=== PATIENT | male | born 1965 | race Hispanic/Latino ===

== ENCOUNTER 2018-05-08 12:20 | Inpatient (IN) | payer OTHER ==
[~2018-05-08] VITALS: Ht 172.7 cm; Wt 105.9 kg
[2018-05-08] VITALS (15 sets, daily range): BP systolic 104–138; BP diastolic 62–81
[2018-05-08 12:51] LABS: BASOPHILS % (AUTO) 0.4 % (0.0-5.0); EOSINOPHILS % (AUTO) 0.1 % (0.0-8.0); HEMATOCRIT 47.6 % (42-54); LYMPHOCYTES % (AUTO) 7.5 % (21.0-51.0); MEAN CORPUSCULAR HEMOGLOBIN 29.7 pg (27.0-33.0); MEAN CORPUSCULAR HGB CONC 33.2 g/dL (32.0-36.0); MEAN CORPUSCULAR VOLUME 89.5 fL (79-99); MONOCYTES % (AUTO) 12.1 % (3.0-13.0); NEUTROPHILS % (AUTO) 79.9 % (40.0-77.0); PLATELET COUNT (AUTO) 162 K/uL (130-400); RED BLOOD CELL COUNT(AUTO) 5.32 MIL/uL (4.50-6.20); RED CELL DISTRIBUTION WIDTH 14.5 % (11.0-15.5); WHITE BLOOD COUNT (AUTO) 18.5 K/uL (4.8-10.8)
[2018-05-08] MEDS ORDERED: INSULIN HUMULIN R 100 UNIT/ML 3ML ONE ×2 (12:57→13:35)
[2018-05-08 13:03] LABS: INR 1.14 (0.85-1.15); PARTIAL THROMBOPLASTIN TIME 31.1 SEC (26.3-35.5); PROTHROMBIN TIME 11.9 SEC (9.6-11.6)
[2018-05-08] MEDS ORDERED: SODIUM CHLORIDE 0.9% 1000ML 3,000 ML IV ONE (13:03)
[2018-05-08 13:19] LABS: ALANINE AMINOTRANSFERASE 24 U/L (12-78); ALBUMIN 1.9 g/dL (3.5-5.0); ASPARTATE AMINOTRANSFERASE 22 U/L (10-37); CARBON DIOXIDE 17 mmol/L (21-32); CREATINE KINASE MB 0.7 ng/mL (0.5-3.6); CREATINE KINASE, TOTAL 19 U/L (21-232); CREATININE 1.8 mg/dL (0.5-1.5); GLOMERULAR FILTR. RATE CALC 42 mL/min (>60); MYOGLOBIN 105 ng/mL (10-92); POTASSIUM 4.1 mmol/L (3.5-5.1); SODIUM SERUM 120 mmol/L (136-145); TROPONIN I < 0.04 ng/mL (0.00-0.06); UREA NITROGEN, BLOOD 54 mg/dL (7-18)
[2018-05-08 13:20] LABS: CHLORIDE 83 mmol/L (101-111)
[2018-05-08 13:20] LABS: ABG BASE EXCESS -8.8 mmol/L (-2.0-3.0); ABG HCO3 14.6 mmol/L (21.0-28.0); ABG OXYGEN SATURATION 98.1 % (95.0-99.0); ABG PCO2 26 mmHg (35-48)
[2018-05-08 13:27] LABS: GLUCOSE,RANDOM 725 mg/dL (70-105)
[2018-05-08] MEDS ORDERED: CEFTRIAXONE SODIUM 1 GM ONE (13:50)
[2018-05-08 14:11] LABS: APPEARANCE,URINE Clear (CLEAR); BILIRUBIN,URINE Negative (NEGATIVE); COLOR,URINE Yellow (YELLOW); GLUCOSE, URINE (UA) >=1000 mg/dL (NEGATIVE); KETONES,URINE 15 mg/dL (NEGATIVE); LEUKOCYTE ESTERASE ,URINE Trace (NEGATIVE); NITRATE,URINE Negative (NEGATIVE); OCCULT BLOOD,URINE Moderate (NEGATIVE); PROTEIN,URINE Negative (NEGATIVE); UROBILINOGEN,URINE 0.2 mg/dL (0.2-1.0)
[2018-05-08 14:28] LABS: BACTERIA,URINE Moderate /HPF (None Seen); YEAST,URINE BUDDING Few /HPF (None Seen)
[2018-05-08 14:29] LABS: SQUAMOUS EPITHELIAL CELL,UR 0-2 /HPF (0-2); TRANSITIONAL EPI CELLS,URINE Few /HPF (None Seen)
[2018-05-08] MEDS ORDERED: SODIUM CHLORIDE 0.9% 1000ML 1,000 ML IV SCH ×2 (16:15→18:00)
[2018-05-08] MEDS ORDERED: ACETAMINOPHEN 650 MG SUPPOSITORY RC PRN (18:00)
[2018-05-08] MEDS ORDERED: INSULIN REGULAR, HUMAN 3ML 100 UNIT in SODIUM CHLORIDE 0.9% 99 ML IV PRN ×2 (18:00)
[2018-05-08] MEDS ORDERED: ONDANSETRON HCL MDV 20ML 2 MG/ML VIAL IVP PRN (18:00)
[2018-05-08] MEDS ORDERED: SODIUM CHLORIDE 0.9% 1000ML 1,000 ML IV ONE (18:31)
[2018-05-08] MEDS: ACETAMINOPHEN 325 MG TAB PO PRN (18:42)
[2018-05-08 20:24] LABS: CREATININE 1.5 mg/dL (0.5-1.5)
[2018-05-08] MEDS ORDERED: LIDOCAINE HCL-MPF 1% 2ML VIAL IVP PRN (21:15)
[2018-05-08] MEDS: SODIUM CHLORIDE 0.9% 1000ML 1,000 ML IV SCH (21:15)
[2018-05-08] MEDS ORDERED: POTASSIUM CHLORIDE 20MEQ/100ML 100 ML IV PRN (21:15)
[2018-05-08] MEDS ORDERED: LEVOFLOXACIN 500 MG/D5W 100 ML 100 ML IV SCH (21:15)
[2018-05-08] MEDS: LEVOFLOXACIN 500 MG/D5W 100 ML 100 ML IV SCH (23:39)
[2018-05-09] VITALS (22 sets, daily range): BP systolic 101–143; BP diastolic 56–78
[2018-05-09] MEDS: SODIUM CHLORIDE 0.9% 1000ML 1,000 ML IV SCH ×4 (03:11→23:55)
[2018-05-09 03:48] LABS: BASOPHILS % (AUTO) 0.6 % (0.0-5.0); EOSINOPHILS % (AUTO) 0.2 % (0.0-8.0); HEMATOCRIT 44.2 % (42-54); LYMPHOCYTES % (AUTO) 8.2 % (21.0-51.0); MEAN CORPUSCULAR HEMOGLOBIN 29.9 pg (27.0-33.0); MEAN CORPUSCULAR HGB CONC 34.5 g/dL (32.0-36.0); MEAN CORPUSCULAR VOLUME 86.6 fL (79-99); PLATELET COUNT (AUTO) 141 K/uL (130-400); RED CELL DISTRIBUTION WIDTH 14.2 % (11.0-15.5); WHITE BLOOD COUNT (AUTO) 16.6 K/uL (4.8-10.8)
[2018-05-09 03:58] LABS: CREATININE 1.2 mg/dL (0.5-1.5); POTASSIUM 3.1 mmol/L (3.5-5.1)
[2018-05-09 04:02] LABS: ALBUMIN 1.5 g/dL (3.5-5.0); BILIRUBIN,TOTAL 0.6 mg/dL (0.2-1.0); MAGNESIUM 2.1 mg/dL (1.80-2.40); TOTAL PROTEIN, SERUM 6.1 g/dL (6.0-8.3)
[2018-05-09] MEDS: POTASSIUM CHLORIDE 20 MEQ ERTAB PO PRN (06:10)
[2018-05-09] MEDS: PANTOPRAZOLE SODIUM 40 MG TABLET.DR PO SCH ×2 (08:40→08:51)
[2018-05-09] MEDS: ENOXAPARIN SODIUM 40 MG/0.4 ML SYRINGE SQ SCH (08:42)
[2018-05-09] MEDS: CEFTRIAXONE SODIUM 1 GM IVP SCH (14:29)
[2018-05-09] MEDS: INSULIN NPH 100 UNIT/ML 3ML SQ SCH ×2 (15:16→20:30)
[2018-05-09] MEDS: INSULIN HUMULIN R 100 UNIT/ML 3ML SQ SCH ×2 (17:23→20:30)
[2018-05-09] MEDS: LEVOFLOXACIN 500 MG/D5W 100 ML 100 ML IV SCH (20:27)
[2018-05-10 00:16] VITALS: BP 116/65
[2018-05-10 03:24] VITALS: BP 112/71
[2018-05-10 04:03] LABS: BASOPHILS % (AUTO) 0.2 % (0.0-5.0); EOSINOPHILS % (AUTO) 0.3 % (0.0-8.0); HEMATOCRIT 41.3 % (42-54); MEAN CORPUSCULAR HEMOGLOBIN 28.8 pg (27.0-33.0); MEAN CORPUSCULAR HGB CONC 33.5 g/dL (32.0-36.0); MONOCYTES % (AUTO) 12.9 % (3.0-13.0); NEUTROPHILS % (AUTO) 75.6 % (40.0-77.0); PLATELET COUNT (AUTO) 130 K/uL (130-400); RED CELL DISTRIBUTION WIDTH 14.1 % (11.0-15.5); WHITE BLOOD COUNT (AUTO) 12.7 K/uL (4.8-10.8)
[2018-05-10 04:49] LABS: CARBON DIOXIDE 25 mmol/L (21-32); CHLORIDE 98 mmol/L (101-111); CHOLESTEROL 76 mg/dL (<200); GLOMERULAR FILTR. RATE CALC 83 mL/min (>60); GLUCOSE,RANDOM 222 mg/dL (70-105); LDL DIRECT 39 mg/dL (0-99); SODIUM SERUM 131 mmol/L (136-145); THYROID STIMULATING HORMONE 1.24 uIU/mL (0.36-3.74); TRIGLYCERIDES 160 mg/dL (30-200); UREA NITROGEN, BLOOD 26 mg/dL (7-18)
[2018-05-10 04:50] LABS: HDL CHOLESTEROL < 10 mg/dL (29-71)
[2018-05-10 04:59] LABS: POTASSIUM 2.9 mmol/L (3.5-5.1)
[2018-05-10] MEDS: POTASSIUM CHLORIDE 10% ELIXIR 20 MEQ/15 ML UDCUP PO PRN (05:03)
[2018-05-10] MEDS: INSULIN HUMULIN R 100 UNIT/ML 3ML SQ SCH ×4 (05:35→21:14)
[2018-05-10] MEDS: ACETAMINOPHEN 325 MG TAB PO PRN ×2 (07:29→09:47)
[2018-05-10 07:42] VITALS: BP 107/72
[2018-05-10] MEDS ORDERED: POTASSIUM CHLORIDE 40 MEQ in SODIUM CHLORIDE 0.9% 1000ML 1,000 ML IV SCH (08:29)
[2018-05-10] MEDS ORDERED: TRAMADOL HCL 50 MG TABLET PO PRN (08:45)
[2018-05-10] MEDS ORDERED: MAGNESIUM SULFATE 1 GM in SODIUM CHLORIDE 0.9% 50 ML IV SCH (08:45)
[2018-05-10] MEDS: PANTOPRAZOLE SODIUM 40 MG TABLET.DR PO SCH (09:36)
[2018-05-10] MEDS: FLUCONAZOLE 100 MG TAB PO SCH (09:36)
[2018-05-10] MEDS: ENOXAPARIN SODIUM 40 MG/0.4 ML SYRINGE SQ SCH (09:44)
[2018-05-10] MEDS: INSULIN NPH 100 UNIT/ML 3ML SQ SCH ×2 (09:47→21:22)
[2018-05-10 11:36] VITALS: BP 106/68
[2018-05-10] MEDS: CEFTRIAXONE SODIUM 1 GM IVP SCH (12:34)
[2018-05-10 16:28] VITALS: BP 122/54
[2018-05-10] MEDS ORDERED: IBUPROFEN 400 MG TABLET PO PRN (19:30)
[2018-05-10 20:04] VITALS: BP 139/94
[2018-05-10] MEDS: LEVOFLOXACIN 500 MG/D5W 100 ML 100 ML IV SCH (21:22)
[2018-05-11] VITALS (7 sets, daily range): BP systolic 110–124; BP diastolic 68–75
[2018-05-11 04:05] LABS: BASOPHILS % (AUTO) 0.3 % (0.0-5.0); EOSINOPHILS % (AUTO) 0.2 % (0.0-8.0); HEMATOCRIT 41.7 % (42-54); LYMPHOCYTES % (AUTO) 8.7 % (21.0-51.0); MEAN CORPUSCULAR HEMOGLOBIN 29.8 pg (27.0-33.0); MEAN CORPUSCULAR HGB CONC 34.4 g/dL (32.0-36.0); MEAN CORPUSCULAR VOLUME 86.7 fL (79-99); MONOCYTES % (AUTO) 8.3 % (3.0-13.0); NEUTROPHILS % (AUTO) 82.5 % (40.0-77.0); PLATELET COUNT (AUTO) 205 K/uL (130-400); RED BLOOD CELL COUNT(AUTO) 4.81 MIL/uL (4.50-6.20); RED CELL DISTRIBUTION WIDTH 14.9 % (11.0-15.5); WHITE BLOOD COUNT (AUTO) 12.9 K/uL (4.8-10.8)
[2018-05-11 04:11] LABS: MAGNESIUM 1.9 mg/dL (1.80-2.40); POTASSIUM 3.1 mmol/L (3.5-5.1)
[2018-05-11] MEDS: INSULIN HUMULIN R 100 UNIT/ML 3ML SQ SCH ×4 (06:24→21:00)
[2018-05-11] MEDS ORDERED: MAGNESIUM SULFATE 1 GM in SODIUM CHLORIDE 0.9% 50 ML IV SCH ×2 (09:45→11:00)
[2018-05-11] MEDS: PANTOPRAZOLE SODIUM 40 MG TABLET.DR PO SCH (10:45)
[2018-05-11] MEDS: FLUCONAZOLE 100 MG TAB PO SCH (10:45)
[2018-05-11] MEDS: ENOXAPARIN SODIUM 40 MG/0.4 ML SYRINGE SQ SCH (10:45)
[2018-05-11] MEDS: INSULIN NPH 100 UNIT/ML 3ML SQ SCH ×2 (11:54→22:00)
[2018-05-11] MEDS ORDERED: MAGNESIUM OXIDE 400 MG TABLET PO SCH (12:00)
[2018-05-11] MEDS: CEFTRIAXONE SODIUM 1 GM IVP SCH (12:33)
[2018-05-11] MEDS ORDERED: LEVOFLOXACIN 750 MG/D5W 150 ML 150 ML IV SCH (21:00)
[2018-05-12 03:57] LABS: BASOPHILS % (AUTO) 0.2 % (0.0-5.0); EOSINOPHILS % (AUTO) 0.4 % (0.0-8.0); LYMPHOCYTES % (AUTO) 12.6 % (21.0-51.0); MEAN CORPUSCULAR HEMOGLOBIN 29.2 pg (27.0-33.0); MEAN CORPUSCULAR HGB CONC 34.3 g/dL (32.0-36.0); MEAN CORPUSCULAR VOLUME 85.3 fL (79-99); MONOCYTES % (AUTO) 11.1 % (3.0-13.0); NEUTROPHILS % (AUTO) 75.7 % (40.0-77.0); PLATELET COUNT (AUTO) 233 K/uL (130-400); RED BLOOD CELL COUNT(AUTO) 4.92 MIL/uL (4.50-6.20); RED CELL DISTRIBUTION WIDTH 14.3 % (11.0-15.5); WHITE BLOOD COUNT (AUTO) 15.3 K/uL (4.8-10.8)
[2018-05-12 04:00] VITALS: BP 112/75
[2018-05-12 04:10] LABS: MAGNESIUM 1.6 mg/dL (1.80-2.40)
[2018-05-12 04:21] LABS: POTASSIUM 2.9 mmol/L (3.5-5.1)
[2018-05-12] MEDS ORDERED: SODIUM CHLORIDE 0.9% 250 ML IV ONE (04:31)
[2018-05-12] MEDS: POTASSIUM CHLORIDE 10% ELIXIR 20 MEQ/15 ML UDCUP PO PRN (04:39)
[2018-05-12] MEDS: INSULIN HUMULIN R 100 UNIT/ML 3ML SQ SCH ×4 (06:15→21:00)
[2018-05-12] MEDS: POTASSIUM CHLORIDE 20 MEQ ERTAB PO PRN (06:52)
[2018-05-12 07:00] VITALS: BP 114/64
[2018-05-12] MEDS ORDERED: MAGNESIUM SULFATE 1 GM in SODIUM CHLORIDE 0.9% 50 ML IV SCH (09:45)
[2018-05-12 11:00] VITALS: BP 139/83
[2018-05-12] MEDS: PANTOPRAZOLE SODIUM 40 MG TABLET.DR PO SCH (11:04)
[2018-05-12] MEDS: POTASSIUM CHLORIDE 20 MEQ ERTAB PO SCH ×3 (11:04→17:10)
[2018-05-12] MEDS: CEFTRIAXONE SODIUM 1 GM IVP SCH (11:04)
[2018-05-12] MEDS: ENOXAPARIN SODIUM 40 MG/0.4 ML SYRINGE SQ SCH (11:05)
[2018-05-12] MEDS: FLUCONAZOLE 100 MG TAB PO SCH (11:05)
[2018-05-12] MEDS ORDERED: PHARMACY COMMUNICATION MISC SCH (15:45)
[2018-05-12 16:00] VITALS: BP 134/64
[2018-05-12 19:52] VITALS: BP 136/80
[2018-05-12] MEDS: INSULIN NPH 100 UNIT/ML 3ML SQ SCH (21:37)
[2018-05-12] MEDS: LEVOFLOXACIN 750 MG/D5W 150 ML 150 ML IV SCH (21:44)
[2018-05-12 23:34] VITALS: BP 124/70
[2018-05-13 03:58] LABS: BASOPHILS % (AUTO) 0.2 % (0.0-5.0); EOSINOPHILS % (AUTO) 0.7 % (0.0-8.0); HEMATOCRIT 39.1 % (42-54); LYMPHOCYTES % (AUTO) 14.3 % (21.0-51.0); MEAN CORPUSCULAR HEMOGLOBIN 29.4 pg (27.0-33.0); MEAN CORPUSCULAR VOLUME 86.3 fL (79-99); MONOCYTES % (AUTO) 9.3 % (3.0-13.0); NEUTROPHILS % (AUTO) 75.5 % (40.0-77.0); PLATELET COUNT (AUTO) 245 K/uL (130-400); RED BLOOD CELL COUNT(AUTO) 4.53 MIL/uL (4.50-6.20); RED CELL DISTRIBUTION WIDTH 14.6 % (11.0-15.5); WHITE BLOOD COUNT (AUTO) 13.9 K/uL (4.8-10.8)
[2018-05-13 04:00] VITALS: BP 117/62
[2018-05-13 04:07] LABS: CREATININE 0.8 mg/dL (0.5-1.5); MAGNESIUM 1.6 mg/dL (1.80-2.40); POTASSIUM 3.2 mmol/L (3.5-5.1)
[2018-05-13] MEDS ORDERED: POTASSIUM CHLORIDE 10% ELIXIR 20 MEQ/15 ML UDCUP PO PRN (06:00)
[2018-05-13] MEDS ORDERED: POTASSIUM CHLORIDE 20MEQ/100ML 100 ML IV PRN (06:00)
[2018-05-13] MEDS ORDERED: LIDOCAINE HCL-MPF 1% 2ML VIAL IVP PRN (06:00)
[2018-05-13] MEDS: INSULIN HUMULIN R 100 UNIT/ML 3ML SQ SCH ×4 (06:31→22:47)
[2018-05-13] MEDS: POTASSIUM CHLORIDE 20 MEQ ERTAB PO PRN ×2 (06:34→11:59)
[2018-05-13] MEDS ORDERED: POTASSIUM CHLORIDE 10 MEQ/TAB.SA PO ONE (06:37)
[2018-05-13 08:04] VITALS: BP 109/58
[2018-05-13] MEDS: INSULIN NPH 100 UNIT/ML 3ML SQ SCH ×2 (08:55→22:46)
[2018-05-13] MEDS: CEFTRIAXONE SODIUM 1 GM IVP SCH (08:56)
[2018-05-13] MEDS: PANTOPRAZOLE SODIUM 40 MG TABLET.DR PO SCH (09:01)
[2018-05-13] MEDS: FLUCONAZOLE 100 MG TAB PO SCH (09:01)
[2018-05-13] MEDS: ENOXAPARIN SODIUM 40 MG/0.4 ML SYRINGE SQ SCH (09:02)
[2018-05-13 12:13] VITALS: BP 122/47
[2018-05-13] MEDS ORDERED: POTASSIUM CHLORIDE 10% ELIXIR 20 MEQ/15 ML UDCUP PO SCH (14:00)
[2018-05-13 15:46] VITALS: BP 102/52
[2018-05-13 20:00] VITALS: BP 82/49
[2018-05-13] MEDS ORDERED: POTASSIUM CHLORIDE 20 MEQ ERTAB PO SCH (20:00)
[2018-05-13] MEDS: LEVOFLOXACIN 750 MG/D5W 150 ML 150 ML IV SCH (22:37)
[2018-05-13 23:50] VITALS: BP 92/51
[2018-05-14 03:53] VITALS: BP 99/58
[2018-05-14] MEDS: INSULIN HUMULIN R 100 UNIT/ML 3ML SQ SCH (06:06)
[2018-05-14 07:54] VITALS: BP 101/38
[2018-05-14] MEDS: ENOXAPARIN SODIUM 40 MG/0.4 ML SYRINGE SQ SCH (09:00)
[2018-05-14] MEDS: PANTOPRAZOLE SODIUM 40 MG TABLET.DR PO SCH (09:00)
[2018-05-14] MEDS: FLUCONAZOLE 100 MG TAB PO SCH (09:00)
[2018-05-14] MEDS: INSULIN NPH 100 UNIT/ML 3ML SQ SCH (09:00)
[2018-05-14] MEDS: CEFTRIAXONE SODIUM 1 GM IVP SCH (09:00)
[2018-05-14] MEDS ORDERED: AEC81 PO (09:40)
[2018-05-14] MEDS ORDERED: LEVO750T46 PO (09:40)
[2018-05-14 11:22] VITALS: BP 104/61
== END 2018-05-14 13:20 | disposition home or self-care (01) | DRG 637 ==
LOC: EDH 12:20 → EDHIP 12:21 → 2CH 17:24 → 2AH 05-09 21:02
PROVIDERS: ADMIT Hospitalist; ATTEND Hospitalist
DX: E11.00 Type 2 diabetes mellitus with hyperosmolarity without nonketotic hyperglycemic-hyperosmolar coma (NKHHC) (principal); G93.40 Encephalopathy, unspecified; N39.0 Urinary tract infection, site not specified; E11.65 Type 2 diabetes mellitus with hyperglycemia; B96.1 Klebsiella pneumoniae [K. pneumoniae] as the cause of diseases classified elsewhere; E66.01 Morbid (severe) obesity due to excess calories; E87.6 Hypokalemia; F17.220 Nicotine dependence, chewing tobacco, uncomplicated; W18.30XA Fall on same level, unspecified, initial encounter; R07.9 Chest pain, unspecified; Y93.89 Activity, other specified; Y92.89 Other specified places as the place of occurrence of the external cause; Y99.8 Other external cause status; Z68.35 Body mass index [BMI] 35.0-35.9, adult; Z79.84 Long term (current) use of oral hypoglycemic drugs; Z28.21 Immunization not carried out because of patient refusal
CPT/HCPCS: 36415; 36600; 70450; 71045; 71100; 80048; 80053; 80061; 81001; 82009; 82140; 82550; 82553; 82803; 82947; 82948; 83036; 83605; 83735; 83874; 84443; 84484; 85025; 85610; 85730; 86141; 87040; 87088; 87186; 93005; 97039; 99291; A4218; G0480; J0696; J1650; J1815; J1956; J3475; J3480; J3490; J7030

== ENCOUNTER 2019-03-18 08:24 | Emergency (ER) | payer SELFPAY ==
[~2019-03-18 08:24] MED LIST: AEC81 PO; LEVO750T46 PO
[2019-03-18 10:00] LABS: APPEARANCE,URINE TURBID (CLEAR); BILIRUBIN,URINE NEGATIVE (NEGATIVE); COLOR,URINE YELLOW (YELLOW); GLUCOSE, URINE (UA) >=1000 mg/dL (NEGATIVE); KETONES,URINE NEGATIVE (NEGATIVE); LEUKOCYTE ESTERASE ,URINE MODERATE (NEGATIVE); NITRATE,URINE NEGATIVE (NEGATIVE); OCCULT BLOOD,URINE SMALL (NEGATIVE); PH,URINE 7.5 (5.0-8.0); PROTEIN,URINE 30 mg/dL (NEGATIVE); UROBILINOGEN,URINE 0.2 mg/dL (0.2-1.0)
[2019-03-18 10:12] LABS: BACTERIA,URINE Moderate /HPF (None Seen); WBC,URINE 26-50 /HPF (0-1)
[2019-03-18 10:13] LABS: AMORPHOUS SEDIMENT,UR Few /LPF (None Seen); SQUAMOUS EPITHELIAL CELL,UR Rare /HPF (0-2); TRIPLE PHOSPHATE CRYSTAL,UR Few /LPF (None Seen)
== END 2019-03-18 10:33 | disposition left against medical advice (07) ==
LOC: EDH 08:24
DX: N39.0 Urinary tract infection, site not specified (principal); R33.9 Retention of urine, unspecified
CPT/HCPCS: 81001

== ENCOUNTER 2019-05-29 13:58 | Inpatient (IN) | payer OTHER ==
[~2019-05-29] VITALS: Ht 165.1 cm; Wt 125.4 kg
[2019-05-29 14:44] LABS: BASOPHILS % (AUTO) 0.5 % (0.0-5.0); EOSINOPHILS % (AUTO) 0.2 % (0.0-8.0); HEMATOCRIT 47.5 % (42-54); LYMPHOCYTES % (AUTO) 8.7 % (21.0-51.0); MEAN CORPUSCULAR HEMOGLOBIN 29.9 pg (27.0-33.0); MEAN CORPUSCULAR HGB CONC 34.6 g/dL (32.0-36.0); MEAN CORPUSCULAR VOLUME 86.6 fL (79-99); MONOCYTES % (AUTO) 3.3 % (3.0-13.0); NEUTROPHILS % (AUTO) 87.3 % (40.0-77.0); NUCLEATED RED BLOOD CELLS 0.1 % (0.0-0.19); PLATELET COUNT (AUTO) 91 K/uL (130-400); RED BLOOD CELL COUNT(AUTO) 5.48 MIL/uL (4.50-6.20); RED CELL DISTRIBUTION WIDTH 13.9 % (11.0-15.5); WHITE BLOOD COUNT (AUTO) 7.4 K/uL (4.8-10.8)
[2019-05-29] MEDS ORDERED: SODIUM CHLORIDE 0.9% 1000ML 1,000 ML IV ONE ×2 (14:45→18:02)
[2019-05-29] MEDS ORDERED: ONDANSETRON HCL 4 MG/2 ML VIAL ONE (14:46)
[2019-05-29 14:54] LABS: INR 1.04 (0.85-1.15); PARTIAL THROMBOPLASTIN TIME 28.9 SEC (26.3-35.5); PROTHROMBIN TIME 10.9 SEC (9.6-11.6)
[2019-05-29] MEDS ORDERED: SODIUM CHLORIDE 0.9% 1000ML 2,000 ML IV ONE (14:57)
[2019-05-29] MEDS ORDERED: ACETAMINOPHEN EXTRA STRENGTH 500 MG TABLET ONE (14:58)
[2019-05-29 15:05] LABS: ALANINE AMINOTRANSFERASE 21 U/L (12-78); ALBUMIN 2.3 g/dL (3.5-5.0); ASPARTATE AMINOTRANSFERASE 33 U/L (10-37); CARBON DIOXIDE 22 mmol/L (21-32); CREATINE KINASE, TOTAL 60 U/L (21-232); CREATININE 2.1 mg/dL (0.5-1.5); GLOMERULAR FILTR. RATE CALC 35 mL/min (>60); GLUCOSE,RANDOM 327 mg/dL (70-105); MYOGLOBIN 87 ng/mL (10-92); POTASSIUM 3.6 mmol/L (3.5-5.1); SODIUM SERUM 124 mmol/L (136-145); TOTAL PROTEIN, SERUM 7.4 g/dL (6.0-8.3); TROPONIN I < 0.04 ng/mL (0.00-0.06); UREA NITROGEN, BLOOD 36 mg/dL (7-18)
[2019-05-29 15:07] LABS: CHLORIDE 86 mmol/L (101-111)
[2019-05-29] MEDS ORDERED: SODIUM CHLORIDE 0.9% 50 ML IV ONE (15:17)
[2019-05-29] MEDS ORDERED: CEFTRIAXONE SODIUM 2 GM VIAL ONE (15:17)
[2019-05-29] MEDS ORDERED: ALBUTEROL SULFATE 0.083% 2.5 MG/3 ML INH IH ONE (15:17)
[2019-05-29 15:32] LABS: ABG BASE EXCESS -5.3 mmol/L (-2.0-3.0); ABG HCO3 16.9 mmol/L (21.0-28.0); ABG OXYGEN SATURATION 98.7 % (95.0-99.0); ABG PCO2 25 mmHg (35-48)
[2019-05-29 18:29] LABS: APPEARANCE,URINE SL CLOUDY (CLEAR); BILIRUBIN,URINE NEGATIVE (NEGATIVE); COLOR,URINE YELLOW (YELLOW); GLUCOSE, URINE (UA) >=1000 mg/dL (NEGATIVE); KETONES,URINE 15 mg/dL (NEGATIVE); LEUKOCYTE ESTERASE ,URINE SMALL (NEGATIVE); NITRATE,URINE NEGATIVE (NEGATIVE); OCCULT BLOOD,URINE MODERATE (NEGATIVE); PROTEIN,URINE TRACE mg/dL (NEGATIVE)
[2019-05-29 18:44] LABS: BACTERIA,URINE Few /HPF (None Seen); SQUAMOUS EPITHELIAL CELL,UR Few /HPF (0-2)
[2019-05-29 18:45] LABS: COARSE GRANULAR CASTS,URINE 0-2 /LPF (None Seen)
[2019-05-29] MEDS: SODIUM CHLORIDE 0.9% 1000ML 1,000 ML IV SCH (23:19)
[2019-05-29] MEDS ORDERED: MORPHINE SULFATE 2 MG/ML 1ML SYG IV PRN (23:30)
[2019-05-29] MEDS ORDERED: ONDANSETRON HCL 4 MG/2 ML VIAL IVP PRN (23:30)
[2019-05-30] MEDS ORDERED: MORPHINE SULFATE 2 MG/ML 1ML SYG ONE (00:47)
[2019-05-30] MEDS ORDERED: SODIUM CHLORIDE 0.9% 1000ML 1,000 ML IV ONE (00:47)
[2019-05-30] MEDS ORDERED: ONDANSETRON HCL 4 MG/2 ML VIAL ONE (00:50)
[2019-05-30 02:30] VITALS: BP 111/81
[2019-05-30 04:39] LABS: BASOPHILS % (AUTO) 0.4 % (0.0-5.0); EOSINOPHILS % (AUTO) 0.2 % (0.0-8.0); HEMATOCRIT 40.6 % (42-54); LYMPHOCYTES % (AUTO) 5.5 % (21.0-51.0); MEAN CORPUSCULAR HEMOGLOBIN 30.3 pg (27.0-33.0); MEAN CORPUSCULAR HGB CONC 34.6 g/dL (32.0-36.0); MEAN CORPUSCULAR VOLUME 87.4 fL (79-99); MONOCYTES % (AUTO) 15.9 % (3.0-13.0); PLATELET COUNT (AUTO) 67 K/uL (130-400); RED BLOOD CELL COUNT(AUTO) 4.65 MIL/uL (4.50-6.20); RED CELL DISTRIBUTION WIDTH 14.2 % (11.0-15.5); WHITE BLOOD COUNT (AUTO) 14.8 K/uL (4.8-10.8)
[2019-05-30 04:57] LABS: ALBUMIN 1.7 g/dL (3.5-5.0); BILIRUBIN,TOTAL 0.6 mg/dL (0.2-1.0); CREATININE 1.6 mg/dL (0.5-1.5); POTASSIUM 3.4 mmol/L (3.5-5.1); TOTAL PROTEIN, SERUM 5.8 g/dL (6.0-8.3)
[2019-05-30] MEDS ORDERED: INSULIN HUMULIN R 100 UNIT/ML 3ML SQ SCH (07:30)
[2019-05-30 08:12] VITALS: BP 114/56
[2019-05-30] MEDS: SODIUM CHLORIDE 0.9% 1000ML 1,000 ML IV SCH ×2 (09:19→19:19)
[2019-05-30] MEDS: FAMOTIDINE/PF 20 MG/2 ML VIAL IV SCH (10:56)
[2019-05-30] MEDS: CEFTRIAXONE SODIUM 1 GM IVP SCH (10:56)
[2019-05-30] MEDS: ENOXAPARIN SODIUM 30 MG/0.3 ML SQ SCH (10:57)
[2019-05-30 11:41] VITALS: BP 90/59
[2019-05-30] MEDS ORDERED: POTASSIUM CHLORIDE 10% ELIXIR 20 MEQ/15 ML UDCUP PO PRN (11:45)
[2019-05-30] MEDS: IPRATROPIUM/ALBUTEROL SULFATE 3 ML SOLUTION IH SCH ×3 (13:16→22:00)
--- NOTE | 2019-05-30 14:00 | NUR ---
INITIAL MET W PT ALONE, AAOX3, UNCOMFORTABLE AND SENTECNES JEREMIE AND JONATHAN. STATES HE HAS BEEN [place]IVING [place] [address] FOR 30 YEARS, ON AND OFF, SELF EMPLOYED, STAYS W DIFFERENT PEOPLE, DOES NOT LIKE SHELTERS, NO LOAVES AND FISHES FOR HIM; STATES WILL FIND SOMEONE TO PICK HIM UP ON DISCHARGE- NOT INTERESTED IN THE COMMUNITY RESOURCE PKT SAYS HE GOES TO [facility] WHEN HE CAN; WILL RE VISITS CLOSER TO DISCHARGE AND BRING MED COUPONS Addendum: 05/31/19 at 0809 by MAYNOR EID RN CM Amended: Links added.
--- NOTE | 2019-05-30 16:04 | NUR ---
RD NOTIFICATION DX: RIGHT SIDED URETEROLITHIASIS WITH HYDRONEPHROSIS. HX: DM. BMI IS 46; CLASSIFIED CLASS III MORBID OBESE. DIET: FULL LIQUIDS. PT HAS GOOD APPETITE AND PO INTAKE OF 75%. SKIN INTACT, NO EDEMA. PT CLAIMS TO HAVE EMESIS AT LEAST 3O MINUTES AFTER EACH MEAL. PT HAS NOT BEEN EATING WELL PRIOR TO ADMISSION AND HAVING EMESIS OFTEN. LBM: HAS NOT HAD ONE IN A COUPLE OF DAYS NOW PER PT. RD RECOMMENDS TO CONTINUE CURRENT DIET, ADD 75GM CCD TO DIET ORDER. ADVANCE DIET TOLERATED WHEN MEDICALLY FEASIBLE. OFFER GLUCERNA BID. RD WILL CONTINUE TO MONITOR AND FOLLOW UP NEEDED. Addendum: 05/30/19 at [address] Amended: Links added.
[2019-05-30 16:49] VITALS: BP 117/68
--- NOTE | 2019-05-30 18:00 | NUR ---
NOTE PATIENT REMAINED WITH CONDITION UNCHANGED ALL DAY. DOES BECOME MORE SOB AT TIMES WITH EXERTION. BBS CLEAR DOES REPORT SOME WHEEZING BUT HAVE NOT NOTICED THAT. HE WAS TAKEN FOR VQ SCAN AND DAMAGE APPRAISER CALLED TO GIVE RESULTS, HE WAS NEGATIVE FOR P.E. INSULIN SLIDING SCALE WAS INCREASED TO SSI REGULAR INSULIN FOR 2 CONSECUTIVE BLOOD SUGARS IN THE 300'S. DR COLLIER ALSO CAME IN TO CONSULT AND HE ORDERED FOR RIGHT NEPHROSTOMY TUBE PLACEMENT AND FOLLOW UP IN 2 WEEKS. HE TOLD HIM THIS COULD BE THE ROOT OF ALL HIS SYMPTOMS AND UTI'S. PATIENT UNDERSTOOD WHAT WAS EXPLAINED.
[2019-05-30] MEDS: INSULIN HUMULIN R 100 UNIT/ML 3ML SQ SCH ×2 (18:10→21:38)
[2019-05-30 19:11] VITALS: BP 137/68
[2019-05-30 23:39] VITALS: BP 106/59
[2019-05-31] VITALS (7 sets, daily range): BP systolic 105–143; BP diastolic 54–97
[2019-05-31] MEDS: IPRATROPIUM/ALBUTEROL SULFATE 3 ML SOLUTION IH SCH ×2 (02:00→06:00)
[2019-05-31] MEDS: SODIUM CHLORIDE 0.9% 1000ML 1,000 ML IV SCH ×2 (05:16→18:37)
[2019-05-31 05:47] LABS: BASOPHILS % (AUTO) 0.5 % (0.0-5.0); EOSINOPHILS % (AUTO) 0.8 % (0.0-8.0); HEMATOCRIT 40.7 % (42-54); MEAN CORPUSCULAR HEMOGLOBIN 29.8 pg (27.0-33.0); MEAN CORPUSCULAR HGB CONC 34.5 g/dL (32.0-36.0); MEAN CORPUSCULAR VOLUME 86.5 fL (79-99); MONOCYTES % (AUTO) 15.1 % (3.0-13.0); NEUTROPHILS % (AUTO) 73.6 % (40.0-77.0); PLATELET COUNT (AUTO) 105 K/uL (130-400); WHITE BLOOD COUNT (AUTO) 11.8 K/uL (4.8-10.8)
[2019-05-31 06:28] LABS: ALBUMIN 1.6 g/dL (3.5-5.0); BILIRUBIN,TOTAL 0.5 mg/dL (0.2-1.0); CREATININE 1.4 mg/dL (0.5-1.5); POTASSIUM 3.3 mmol/L (3.5-5.1); TOTAL PROTEIN, SERUM 5.8 g/dL (6.0-8.3)
[2019-05-31] MEDS: INSULIN HUMULIN R 100 UNIT/ML 3ML SQ SCH ×4 (07:30→21:00)
[2019-05-31] MEDS: ENOXAPARIN SODIUM 30 MG/0.3 ML SQ SCH (09:00)
[2019-05-31] MEDS: CEFTRIAXONE SODIUM 1 GM IVP SCH (09:41)
[2019-05-31] MEDS: FAMOTIDINE/PF 20 MG/2 ML VIAL IV SCH (09:41)
--- NOTE | 2019-05-31 09:51 | NUR ---
PT DENIES SOB OR CHEST PAIN LOVENOX ON HOLD DUE TO PLAN PROCEDURE WITH IR
[2019-05-31] MEDS ORDERED: MIDAZOLAM HCL 1 MG/ML 2ML VIAL ONE (13:03)
[2019-05-31] MEDS ORDERED: LIDOCAINE HCL 1% MDV 50ML VIAL ONE (13:03)
[2019-05-31] MEDS ORDERED: FENTANYL CITRATE PF 50 MCG/1 ML 2ML VIAL ONE (13:03)
[2019-05-31] MEDS ORDERED: IODIXANOL 320 MG/ML 100 ML VIAL ONE (13:09)
--- NOTE | 2019-05-31 14:50 | NUR ---
DR VERN ESCALANTE, MADE AWARE OF PT'S STATUS POST OF RIGHT NEPHROSTOMY TUBE PLACEMENT AND AWARE PER REPORT FROM IGGY VIEIRA FROM [facility] PT HAD BEEN IN AND OUT OF AFIB W RVR AND SINUS TACH PT PLACED ON TELEMETRY PER PROTOCOL , DR. PORRAS INFORMED PT ON AFIB IN THE 120'S -105 BP 139-96 SATTING 93 2 LITERS STATED HE WOULD COME TO SEE PATIENT NO NEW ORDERS AT THE TIME
--- NOTE | 2019-05-31 14:55 | NUR ---
DR. PORRAS AT BED SIDE SHOWED EKG RYTM STRIPS STATED TO CALL A RAPID RESPONSE AND TO GIVE CARDIZEM 20 MG IV ONCE WE DO NOT HAVE ANY ON OUR FLOOR RONALD FROM PHARMACY CALLED, STATED THEY ARE WORKING ON IT CHARGE NURS AWARE
--- NOTE | 2019-05-31 14:57 | NUR ---
CARDIZEM GIVEN 20 MG IV ONCE PT REFUSED EKG PT STATES HE WANT TO EAT PT AGITATED, SOB SATTING LOW 80'S ON VENTI MASK AT BED SIDE, CHARGE NURSE LUIS DIRECTOR
[2019-05-31] MEDS ORDERED: DILTIAZEM HCL 5 MG/ML 5 ML VIAL IVP SCH (15:00)
[2019-05-31] MEDS ORDERED: NALOXONE HCL 0.4 MG/1 ML ML ONE (15:04)
--- NOTE | 2019-05-31 15:08 | NUR ---
CARDIOLOGY CONSULTED PT'S VITAL BP 148/84 HR 175 PT WILL BE TRANSFERRED TO [facility] ROOM 232
[2019-05-31] MEDS ORDERED: DILTIAZEM 125MG+100 ML NS 125 ML IV SCH (15:15)
[2019-05-31] MEDS ORDERED: PHARMACY COMMUNICATION MISC SCH (15:15)
[2019-05-31] MEDS ORDERED: MEROPENEM 1 GM VIAL ONE (15:15)
--- NOTE | 2019-05-31 15:15 | NUR ---
PT TRANSFERRED TO SECOND FLOOR BEDSIDE REPORT GIVEN GO JAZZMINE AWARE OF PT'SMEDICATION GIVEN AND PT'S SBAR STATED SHE WOULD CONTACT CARDIOLOGY PT LOOKS LESS AGITATED SATTING 96 % ON A VENTI MASK BP 146-89 HR 120'S TEMP 98.1 PT DENIES CHEST PAIN BROTHER AT BED SIDE
[2019-05-31 15:17] LABS: BASOPHILS % (AUTO) 0.5 % (0.0-5.0); EOSINOPHILS % (AUTO) 0.6 % (0.0-8.0); HEMATOCRIT 45.6 % (42-54); LYMPHOCYTES % (AUTO) 13.3 % (21.0-51.0); MEAN CORPUSCULAR HEMOGLOBIN 29.5 pg (27.0-33.0); MEAN CORPUSCULAR HGB CONC 34.7 g/dL (32.0-36.0); MONOCYTES % (AUTO) 0.9 % (3.0-13.0); NEUTROPHILS % (AUTO) 84.7 % (40.0-77.0); PLATELET COUNT (AUTO) 134 K/uL (130-400); RED BLOOD CELL COUNT(AUTO) 5.37 MIL/uL (4.50-6.20); RED CELL DISTRIBUTION WIDTH 13.9 % (11.0-15.5); WHITE BLOOD COUNT (AUTO) 4.7 K/uL (4.8-10.8)
--- NOTE | 2019-05-31 15:30 | NUR ---
IMPORTANCE OF FLUID RESTRICTION EMPHASIZED TO PATIENT . WATER JUG THAT HOLDS ABOUT 1.5L OF FLUIDS IS AT BEDSIDE AND IS ABOUT HALF FULL OF WATER. INFORMED PATIENT AND FAMILY MEMBER AT BEDSIDE THAT PATIENT IS ON STRICT FLUID RESTRICTION OF 1.5L/DAY THAT WHICH INCLUDES HIS FLUID INTAKE FROM ALL TRAYS FROM [place]ITCHEN. FAMILY SAID THAT THEY ARE AWARE BUT PATIENT IS STUBBORN. I TOLD FAMILY NOT TO BE REFILLING HIS WATER JUG FOR HIM. BROTHER VERBALIZED UNDERSTANDING.
--- NOTE | 2019-05-31 15:30 | NUR ---
SPOKE WITH HOSSEIN AMAYA AND MADE HIM AWARE OF THE NEW CONSULT FOR AFIB. HE SAID TO CALL IN NEW CONSULT TO OFFICE. CALLED [facility] AND LEFT A MESSAGE TO NATALIA FOR NEW CONSULT.
[2019-05-31 15:32] LABS: CREATININE 1.4 mg/dL (0.5-1.5); POTASSIUM 3.2 mmol/L (3.5-5.1)
[2019-05-31] MEDS: MEROPENEM 1 GM VIAL IVP SCH ×2 (15:36→23:09)
[2019-05-31 15:37] LABS: BILIRUBIN,TOTAL 0.8 mg/dL (0.2-1.0)
[2019-05-31 15:46] LABS: CREATINE KINASE, TOTAL 28 U/L (21-232); MYOGLOBIN 85 ng/mL (10-92); TROPONIN I < 0.04 ng/mL (0.00-0.06)
--- NOTE | 2019-05-31 16:22 | NUR ---
DR. VALDEZ IS IN TO SEE PATIENT. PATIENT HAD ALREADY CONVERTED TO SINUS TACH. PER HOSSEIN AMAYA, MAY STOP CARDIZEM DRIP AND JUST USE MED PRN.
--- NOTE | 2019-05-31 17:30 | NUR ---
FAMILY REFILLED PATIENT'S JUG ONCE AGAIN WITH ICE. I INFORMED THEM THAT PATIENT ALREADY EXCEEDED HIS DAILY FLUID INTAKE. THEY RESPONDED "IT'S ONLY ICE. HE JUST NEEDS TO KEEP HIS MOUTH MOIST." I OFFERED SPONGES AND THEY TOOK IT AND GAVE IT TO PATIENT.
[2019-05-31] MEDS: IPRATROPIUM 0.5 MG/2.5 ML INH IH SCH ×2 (18:00→23:21)
[2019-05-31] MEDS: APIXABAN 5 MG TABLET PO SCH (20:42)
[2019-05-31] MEDS ORDERED: INSULIN GLARGINE 100 UNITS/ML 10 ML VIAL SQ SCH (21:00)
--- NOTE | 2019-06-01 02:48 | NUR ---
Assessment patient now sinus rhythm after being sinus tachy during shift change. No distress noted, O2 at 94% room air. Denies any pain to nephrostomy tube and or chest pain. Patient appears comfortable, call light within reach.
[2019-06-01 03:39] VITALS: BP 94/55
[2019-06-01 04:07] LABS: BASOPHILS % (AUTO) 0.4 % (0.0-5.0); EOSINOPHILS % (AUTO) 0.5 % (0.0-8.0); HEMATOCRIT 40.3 % (42-54); LYMPHOCYTES % (AUTO) 8.4 % (21.0-51.0); MEAN CORPUSCULAR HEMOGLOBIN 29.5 pg (27.0-33.0); MEAN CORPUSCULAR HGB CONC 34.2 g/dL (32.0-36.0); MEAN CORPUSCULAR VOLUME 86.5 fL (79-99); MONOCYTES % (AUTO) 9.5 % (3.0-13.0); NEUTROPHILS % (AUTO) 81.2 % (40.0-77.0); PLATELET COUNT (AUTO) 125 K/uL (130-400); RED BLOOD CELL COUNT(AUTO) 4.66 MIL/uL (4.50-6.20); RED CELL DISTRIBUTION WIDTH 14.2 % (11.0-15.5); WHITE BLOOD COUNT (AUTO) 17.1 K/uL (4.8-10.8)
[2019-06-01] MEDS: SODIUM CHLORIDE 0.9% 1000ML 1,000 ML IV SCH (04:23)
[2019-06-01 04:39] LABS: ALBUMIN 1.5 g/dL (3.5-5.0); BILIRUBIN,TOTAL 0.7 mg/dL (0.2-1.0); CREATININE 1.4 mg/dL (0.5-1.5); POTASSIUM 3.1 mmol/L (3.5-5.1); TOTAL PROTEIN, SERUM 5.8 g/dL (6.0-8.3)
[2019-06-01 05:04] LABS: T4 (THYROXINE) 5.6 ug/dL (4.7-13.3); THYROID STIMULATING HORMONE 2.12 uIU/mL (0.36-3.74)
[2019-06-01] MEDS: INSULIN HUMULIN R 100 UNIT/ML 3ML SQ SCH ×4 (05:56→21:14)
[2019-06-01] MEDS: IPRATROPIUM 0.5 MG/2.5 ML INH IH SCH ×4 (06:00→22:56)
[2019-06-01] MEDS: MEROPENEM 1 GM VIAL IVP SCH ×3 (06:16→23:56)
[2019-06-01 07:41] VITALS: BP 114/78
--- NOTE | 2019-06-01 07:56 | NUR ---
DR. VALDEZ IS IN TO SEE PATIENT.
[2019-06-01] MEDS: FAMOTIDINE/PF 20 MG/2 ML VIAL IV SCH (08:20)
--- NOTE | 2019-06-01 08:55 | NUR ---
DR. APONTE IS MAKING HIS ROUNDS. IVF TO BE DISCONTINUED. INFORMED MD THAT PATIENT'S NEPHROSTOMY TUBE OUTPUT HAS BEEN BLOODY AND PATIENT IS ON ELIQUIS BID. MD REVIEWED CBC AND SAID THAT IT IS OK TO GIVE DOSE. PATIENT TO BE EDUCATED ON FLUID RESTRICTION.
[2019-06-01] MEDS: SODIUM CHLORIDE 1,000 MG TAB PO SCH (09:48)
[2019-06-01] MEDS: APIXABAN 5 MG TABLET PO SCH ×2 (09:48→20:24)
[2019-06-01 11:32] VITALS: BP 108/62
[2019-06-01 15:37] VITALS: BP 110/68
[2019-06-01 19:15] VITALS: BP 122/52
[2019-06-01] MEDS: POTASSIUM CHLORIDE 20 MEQ ERTAB PO PRN (20:38)
[2019-06-01] MEDS: INSULIN GLARGINE 100 UNITS/ML 10 ML VIAL SQ SCH (21:14)
[2019-06-01 23:26] VITALS: BP 99/52
[2019-06-02 03:30] VITALS: BP 115/64
[2019-06-02 03:37] LABS: ALBUMIN 1.5 g/dL (3.5-5.0); BASOPHILS % (AUTO) 0.5 % (0.0-5.0); BILIRUBIN,TOTAL 0.6 mg/dL (0.2-1.0); CREATININE 1.2 mg/dL (0.5-1.5); EOSINOPHILS % (AUTO) 0.6 % (0.0-8.0); HEMATOCRIT 39.3 % (42-54); LYMPHOCYTES % (AUTO) 8.9 % (21.0-51.0); MEAN CORPUSCULAR HEMOGLOBIN 29.3 pg (27.0-33.0); MEAN CORPUSCULAR HGB CONC 34.5 g/dL (32.0-36.0); MEAN CORPUSCULAR VOLUME 84.8 fL (79-99); MONOCYTES % (AUTO) 9.8 % (3.0-13.0); NEUTROPHILS % (AUTO) 80.2 % (40.0-77.0); PLATELET COUNT (AUTO) 198 K/uL (130-400); RED BLOOD CELL COUNT(AUTO) 4.63 MIL/uL (4.50-6.20); RED CELL DISTRIBUTION WIDTH 14.3 % (11.0-15.5); TOTAL PROTEIN, SERUM 5.9 g/dL (6.0-8.3); WHITE BLOOD COUNT (AUTO) 15.1 K/uL (4.8-10.8)
[2019-06-02] MEDS: IPRATROPIUM 0.5 MG/2.5 ML INH IH SCH (06:00)
[2019-06-02] MEDS: MEROPENEM 1 GM VIAL IVP SCH (06:23)
[2019-06-02] MEDS: INSULIN HUMULIN R 100 UNIT/ML 3ML SQ SCH ×4 (06:46→21:18)
[2019-06-02] MEDS: POTASSIUM CHLORIDE 10MEQ/100ML 100 ML IV PRN ×2 (06:53→12:24)
[2019-06-02] MEDS: LIDOCAINE HCL-MPF 1% 2ML VIAL IV PRN ×2 (06:53→12:24)
[2019-06-02 07:00] VITALS: BP 103/60
[2019-06-02] MEDS: APIXABAN 5 MG TABLET PO SCH ×2 (08:24→20:46)
[2019-06-02] MEDS: SODIUM CHLORIDE 1,000 MG TAB PO SCH (08:24)
[2019-06-02] MEDS: FAMOTIDINE/PF 20 MG/2 ML VIAL IV SCH (08:24)
[2019-06-02] MEDS ORDERED: IPRATROPIUM 0.5 MG/2.5 ML INH IH PRN (09:00)
[2019-06-02 11:00] VITALS: BP 97/58
--- NOTE | 2019-06-02 12:38 | NUR ---
Nutrition f/u: Pt with improved po intake and tolerance. Pt seemed uninterested to speak to RD. Pt upset because he was on fluid restriction. Attempted to explain to patient importance of fluid restriction pt replied with "Who cares! I just want my water." Pt with large cup at bedside, reported there was nothing in there however stated that if his friend was visiting he would fill it up for him with water. RD reported conversation to PREM Landrum. Recommendations: Continue current diet therapy. Monitor po intake and tolerance. Monitor fluid intake. Discourage visitors to provide additional fluids to pt. Addendum: 06/02/19 at [address] Amended: Links added.
[2019-06-02 15:00] VITALS: BP 105/62
[2019-06-02] MEDS: SODIUM CHLORIDE 0.9% 1000ML 1,000 ML IV SCH (17:52)
--- NOTE | 2019-06-02 17:59 | NUR ---
ATTEMPTED TO CALL REPORT FOR TRANSFER TO PREM ROMERO ,MEDICAL FLOOR. UNSUCCESSFUL ATTEMPT. WILL REATTEMPT.
--- NOTE | 2019-06-02 18:02 | NUR ---
CALLED MEDICAL FLOOR, SPOKE WITH SUPERINTENDENT MECHANICALRomi ROMERO TO CALL BACK FOR REPORT, NUMBER PROVIDED.
--- NOTE | 2019-06-02 19:05 | NUR ---
TRANSFERRED FROM ROOM 232: Received report at the unit (3rd floor) from Diallo AMARO. Was informed the potassium has been covered and to continue IVF NS1L at 40 ml/hr to right FA #20 gauge - patent and intact. Pt alert and very responsive. Nephrostomy tube to right draining a clear red colored urine. No apparent distress /discomfort noted.
[2019-06-02 19:49] VITALS: BP 111/61
[2019-06-02] MEDS: INSULIN GLARGINE 100 UNITS/ML 10 ML VIAL SQ SCH (21:18)
[2019-06-02 23:43] VITALS: BP 110/58
[2019-06-03 04:00] VITALS: BP 103/58
[2019-06-03 04:50] LABS: BASOPHILS % (AUTO) 0.7 % (0.0-5.0); EOSINOPHILS % (AUTO) 0.9 % (0.0-8.0); HEMATOCRIT 38.8 % (42-54); LYMPHOCYTES % (AUTO) 12.5 % (21.0-51.0); MEAN CORPUSCULAR VOLUME 85.3 fL (79-99); MONOCYTES % (AUTO) 6.2 % (3.0-13.0); NEUTROPHILS % (AUTO) 79.7 % (40.0-77.0); PLATELET COUNT (AUTO) 261 K/uL (130-400); RED BLOOD CELL COUNT(AUTO) 4.55 MIL/uL (4.50-6.20); RED CELL DISTRIBUTION WIDTH 14.1 % (11.0-15.5); WHITE BLOOD COUNT (AUTO) 13.5 K/uL (4.8-10.8)
[2019-06-03 05:21] LABS: CREATININE 1.1 mg/dL (0.5-1.5); POTASSIUM 3.2 mmol/L (3.5-5.1)
[2019-06-03] MEDS: INSULIN HUMULIN R 100 UNIT/ML 3ML SQ SCH ×4 (06:09→20:45)
[2019-06-03 08:06] VITALS: BP 124/74
[2019-06-03] MEDS ORDERED: POTASSIUM CHLORIDE 10% ELIXIR 20 MEQ/15 ML UDCUP PO SCH (08:45)
[2019-06-03] MEDS: SODIUM CHLORIDE 1,000 MG TAB PO SCH (09:28)
[2019-06-03] MEDS: FAMOTIDINE/PF 20 MG/2 ML VIAL IV SCH (09:28)
[2019-06-03] MEDS: APIXABAN 5 MG TABLET PO SCH ×2 (09:28→20:46)
[2019-06-03] MEDS: POTASSIUM CHLORIDE 20 MEQ ERTAB PO PRN ×2 (09:33→21:36)
[2019-06-03] MEDS: LEVOFLOXACIN 750 MG/D5W 150 ML 150 ML IV SCH (11:07)
[2019-06-03 12:11] VITALS: BP 112/69
[2019-06-03 15:32] VITALS: BP 115/71
[2019-06-03 20:29] VITALS: BP 115/68
[2019-06-03] MEDS: INSULIN GLARGINE 100 UNITS/ML 10 ML VIAL SQ SCH (20:44)
[2019-06-03] MEDS: POTASSIUM CHLORIDE 10MEQ/100ML 100 ML IV PRN (21:43)
[2019-06-03] MEDS: LIDOCAINE HCL-MPF 1% 2ML VIAL IV PRN (21:43)
[2019-06-03 23:45] VITALS: BP 113/54
[2019-06-04 04:14] VITALS: BP 119/77
[2019-06-04 05:45] LABS: HEMATOCRIT 38.4 % (42-54); MEAN CORPUSCULAR HGB CONC 33.5 g/dL (32.0-36.0); MEAN CORPUSCULAR VOLUME 86.7 fL (79-99); PLATELET COUNT (AUTO) 302 K/uL (130-400); RED BLOOD CELL COUNT(AUTO) 4.43 MIL/uL (4.50-6.20); RED CELL DISTRIBUTION WIDTH 14.5 % (11.0-15.5); WHITE BLOOD COUNT (AUTO) 14.7 K/uL (4.8-10.8)
[2019-06-04] MEDS: INSULIN HUMULIN R 100 UNIT/ML 3ML SQ SCH ×4 (05:59→20:20)
[2019-06-04 06:05] LABS: CREATININE 1.1 mg/dL (0.5-1.5); POTASSIUM 3.7 mmol/L (3.5-5.1)
[2019-06-04 07:58] VITALS: BP 113/74
[2019-06-04] MEDS: LEVOFLOXACIN 750 MG/D5W 150 ML 150 ML IV SCH (08:43)
[2019-06-04] MEDS: POTASSIUM CHLORIDE 10% ELIXIR 20 MEQ/15 ML UDCUP PO SCH (08:45)
--- NOTE | 2019-06-04 08:45 | NUR ---
WEAKNESS IN KNEES USED WALKER TO GO TO BATHROOM Addendum: 06/04/19 at 1215 by SHELLEY RIBERA RN RN Amended: Links added.
[2019-06-04] MEDS: APIXABAN 5 MG TABLET PO SCH ×2 (08:49→20:18)
[2019-06-04] MEDS: SODIUM CHLORIDE 1,000 MG TAB PO SCH (08:49)
[2019-06-04] MEDS: FAMOTIDINE/PF 20 MG/2 ML VIAL IV SCH (08:50)
[2019-06-04 12:13] VITALS: BP 114/70
[2019-06-04 15:45] VITALS: BP 120/70
--- NOTE | 2019-06-04 16:00 | NUR ---
Dipika: Spoke w Dr. Manzanares/Abbie and primary nurse regarding CM trigger regarding Eliquis. Per Dr. Manzanares hold off on Eliquis coupon for now. She will discuss w cardio in am regarding need to continue @ dc vs poss aspirin. CM to continue to follow.
--- NOTE | 2019-06-04 16:15 | NUR ---
DR FERRARI AND MORRIS ROUNDED ON PATIENT
[2019-06-04 19:34] VITALS: BP 113/64
[2019-06-04] MEDS: INSULIN GLARGINE 100 UNITS/ML 10 ML VIAL SQ SCH (20:20)
[2019-06-05 00:21] VITALS: BP 112/66
--- NOTE | 2019-06-05 03:11 | NUR ---
UO STATUS FREE VOID URINE AND NEPHROSTOMY TUBE URINE ,DARKER RED IN COLOR NOTED, NO CLOTS VISIBLE AT HIS TIME ,PT DENIES ANY CHANGES OR DISCOMFORT R/T URINATION. PT REASSURED WILL REPORT FINDINGS WITH IN A.M.,WILL INQUIRE IF ELIQUIS ANTICOAGULATION WILL NEED TO BE PLACED ON HOLD OR NOT Addendum: 06/05/19 at 0314 by RAFFI ALEJANDRE RN RN Amended: Links added.
[2019-06-05 04:18] VITALS: BP 126/77
[2019-06-05 05:49] LABS: MEAN CORPUSCULAR HEMOGLOBIN 29.7 pg (27.0-33.0); MEAN CORPUSCULAR HGB CONC 34.2 g/dL (32.0-36.0); MEAN CORPUSCULAR VOLUME 86.9 fL (79-99); PLATELET COUNT (AUTO) 339 K/uL (130-400); RED BLOOD CELL COUNT(AUTO) 4.14 MIL/uL (4.50-6.20); RED CELL DISTRIBUTION WIDTH 14.3 % (11.0-15.5); WHITE BLOOD COUNT (AUTO) 12.6 K/uL (4.8-10.8)
[2019-06-05 06:03] LABS: CREATININE 0.9 mg/dL (0.5-1.5); POTASSIUM 3.2 mmol/L (3.5-5.1)
[2019-06-05] MEDS: INSULIN HUMULIN R 100 UNIT/ML 3ML SQ SCH ×4 (06:30→21:00)
[2019-06-05] MEDS: LIDOCAINE HCL-MPF 1% 2ML VIAL IV PRN (06:38)
[2019-06-05] MEDS: POTASSIUM CHLORIDE 10MEQ/100ML 100 ML IV PRN (06:38)
[2019-06-05 07:30] VITALS: BP_SYST 116; BP_SYST 133; BP_DIAS 66; BP_DIAS 72
[2019-06-05] MEDS: POTASSIUM CHLORIDE 10% ELIXIR 20 MEQ/15 ML UDCUP PO SCH (08:45)
[2019-06-05] MEDS: APIXABAN 5 MG TABLET PO SCH ×2 (09:00→21:00)
[2019-06-05] MEDS: FAMOTIDINE/PF 20 MG/2 ML VIAL IV SCH (10:06)
[2019-06-05] MEDS: LEVOFLOXACIN 750 MG/D5W 150 ML 150 ML IV SCH (10:06)
[2019-06-05] MEDS: SODIUM CHLORIDE 1,000 MG TAB PO SCH (10:08)
--- NOTE | 2019-06-05 10:30 | NUR ---
explained to patient on importance of getting a potassium supplement due to low levels at this time . per patient still does not want potassium,refused the iv potassium ,pill and liquid form .
[2019-06-05 11:00] VITALS: BP 112/61
--- NOTE | 2019-06-05 13:48 | NUR ---
notified dr sigala regarding paitent cont with hematuria at this point from yesterday and currently on eliquis that was started post op . per md hold for now . will continue to monitor
[2019-06-05] MEDS ORDERED: IOHEXOL-350 75 ML VIAL IV ONE (15:18)
[2019-06-05 16:00] VITALS: BP 136/77
--- NOTE | 2019-06-05 17:57 | NUR ---
PATIENT VOIDED YELLOW COLORED URINE .
[2019-06-05 20:00] VITALS: BP 127/79
[2019-06-05] MEDS: INSULIN GLARGINE 100 UNITS/ML 10 ML VIAL SQ SCH (20:57)
[2019-06-06] VITALS: BP 115/73
--- NOTE | 2019-06-06 02:33 | NUR ---
PAIN 7 OUT OF 10 PAIN IN RIGHT FLANK REPORTED. NO AVAILABLE PAIN MED ON OCT. AVA MCNAMARA, BOILER WELDER ORDERED TORADOL 30MG IV Q6 FOR PAIN. WILL PLACE ORDER IN [facility] AND ADMINISTER. WILL CONT TO MONITOR PT PAIN LEVEL.
[2019-06-06] MEDS ORDERED: KETOROLAC TROMETHAMINE 30MG/ML ONE (02:36)
[2019-06-06] MEDS ORDERED: KETOROLAC TROMETHAMINE 30MG/ML IV PRN (02:45)
[2019-06-06 04:00] VITALS: BP 102/55
[2019-06-06 05:46] LABS: BASOPHILS % (AUTO) 0.3 % (0.0-5.0); EOSINOPHILS % (AUTO) 0.6 % (0.0-8.0); HEMATOCRIT 36.7 % (42-54); LYMPHOCYTES % (AUTO) 13.3 % (21.0-51.0); MEAN CORPUSCULAR HEMOGLOBIN 29.1 pg (27.0-33.0); MEAN CORPUSCULAR HGB CONC 33.6 g/dL (32.0-36.0); MEAN CORPUSCULAR VOLUME 86.6 fL (79-99); MONOCYTES % (AUTO) 7.4 % (3.0-13.0); NEUTROPHILS % (AUTO) 78.4 % (40.0-77.0); PLATELET COUNT (AUTO) 367 K/uL (130-400); RED BLOOD CELL COUNT(AUTO) 4.24 MIL/uL (4.50-6.20); RED CELL DISTRIBUTION WIDTH 14.3 % (11.0-15.5); WHITE BLOOD COUNT (AUTO) 12.4 K/uL (4.8-10.8)
[2019-06-06 05:57] LABS: ALBUMIN 1.7 g/dL (3.5-5.0); BILIRUBIN,TOTAL 0.7 mg/dL (0.2-1.0); CREATININE 1.2 mg/dL (0.5-1.5); POTASSIUM 3.3 mmol/L (3.5-5.1); TOTAL PROTEIN, SERUM 6.3 g/dL (6.0-8.3)
[2019-06-06] MEDS: INSULIN HUMULIN R 100 UNIT/ML 3ML SQ SCH ×4 (06:12→20:02)
[2019-06-06 07:00] VITALS: BP 110/68
[2019-06-06] MEDS: POTASSIUM CHLORIDE 10% ELIXIR 20 MEQ/15 ML UDCUP PO SCH (08:45)
[2019-06-06] MEDS: APIXABAN 5 MG TABLET PO SCH (09:00)
[2019-06-06] MEDS: SODIUM CHLORIDE 1,000 MG TAB PO SCH (10:03)
[2019-06-06] MEDS: LEVOFLOXACIN 750 MG/D5W 150 ML 150 ML IV SCH (10:03)
[2019-06-06] MEDS: FAMOTIDINE/PF 20 MG/2 ML VIAL IV SCH (10:03)
[2019-06-06 11:00] VITALS: BP 140/69
[2019-06-06 16:00] VITALS: BP 120/60
--- NOTE | 2019-06-06 17:30 | NUR ---
NOTIFIED MD RUBY MARINO IF TO CONT OR STILL HOLD DUE TO HEMATURIA. PER CONT TO HOLD AND WILL COME SEE PATIENT LATER TODAY
[2019-06-06 20:02] VITALS: BP 141/80
[2019-06-06] MEDS: INSULIN GLARGINE 100 UNITS/ML 10 ML VIAL SQ SCH (20:04)
[2019-06-07] VITALS (8 sets, daily range): BP systolic 88–119; BP diastolic 49–75
[2019-06-07] MEDS ORDERED: SODIUM CHLORIDE 0.9% 500ML 500 ML IV ONE (00:53)
[2019-06-07 06:02] LABS: BASOPHILS % (AUTO) 0.5 % (0.0-5.0); EOSINOPHILS % (AUTO) 0.4 % (0.0-8.0); HEMATOCRIT 35.9 % (42-54); LYMPHOCYTES % (AUTO) 11.7 % (21.0-51.0); MEAN CORPUSCULAR HEMOGLOBIN 29.3 pg (27.0-33.0); MEAN CORPUSCULAR VOLUME 86.2 fL (79-99); MONOCYTES % (AUTO) 6.3 % (3.0-13.0); NEUTROPHILS % (AUTO) 81.1 % (40.0-77.0); PLATELET COUNT (AUTO) 360 K/uL (130-400); RED BLOOD CELL COUNT(AUTO) 4.17 MIL/uL (4.50-6.20); RED CELL DISTRIBUTION WIDTH 14.1 % (11.0-15.5); WHITE BLOOD COUNT (AUTO) 11.5 K/uL (4.8-10.8)
[2019-06-07 06:22] LABS: ALBUMIN 1.7 g/dL (3.5-5.0); BILIRUBIN,TOTAL 0.5 mg/dL (0.2-1.0); CREATININE 1.2 mg/dL (0.5-1.5); POTASSIUM 3.5 mmol/L (3.5-5.1); TOTAL PROTEIN, SERUM 6.3 g/dL (6.0-8.3)
[2019-06-07] MEDS: INSULIN HUMULIN R 100 UNIT/ML 3ML SQ SCH ×2 (06:57→13:02)
--- NOTE | 2019-06-07 08:00 | NUR ---
RECEIVED IN BED ALERT AND AWAKE WITH REGULAR RESPIRATIONS ON ROOM AIR. DENIES PAIN WHEN ASKED. RIGHT NEPHROSTOMY TUBE OBSERVED WITH HEMATURIA, DRESSING SITE IS CLEAN AND DRY WITHOUT COMPLICATION. PATIENT IS ALSO VOIDING WITHOUT PROBLEM. PLAN OF CARE WAS EXPLAINED TO THE PATIENT AND HOSPITALIST MD ALREADY ROUNDED.
[2019-06-07] MEDS: POTASSIUM CHLORIDE 10% ELIXIR 20 MEQ/15 ML UDCUP PO SCH (08:45)
[2019-06-07] MEDS: SODIUM CHLORIDE 1,000 MG TAB PO SCH (09:00)
[2019-06-07] MEDS: LEVOFLOXACIN 750 MG/D5W 150 ML 150 ML IV SCH (09:03)
[2019-06-07] MEDS: FAMOTIDINE/PF 20 MG/2 ML VIAL IV SCH (09:03)
--- NOTE | 2019-06-07 19:37 | NUR ---
DISCHARGE INFORMATION WAS EXPLAINED TO THE PATIENT AND FOLLOW UP WITH UROLOGIST WAS MADE AND GIVEN TO HIM WITH PRESCRIPTION. IV ACCESS REMOVED WITHOUT PROBLEM. PT LEFT THE UNIT IN STABLE CONDITION VIA W/C ASSISTED BY FLOOR JUNIOR HIGH SCHOOL TEACHER.
== END 2019-06-07 19:34 | disposition home or self-care (01) | DRG 871 ==
LOC: EDH 13:58 → EDHIP 13:59 → 4AH 05-30 01:26 → 2AH 05-31 15:30 → 3AH 06-02 19:00
PROVIDERS: ADMIT Internal Medicine; ATTEND Internal Medicine
PROC: 0T9330Z Drainage of Right Kidney Pelvis with Drainage Device, Percutaneous Approach (ICD-10-PCS; principal; 2019-05-31)
DX: A41.59 Other Gram-negative sepsis (principal); E43 Unspecified severe protein-calorie malnutrition; N17.9 Acute kidney failure, unspecified; E87.2 Acidosis; J44.1 Chronic obstructive pulmonary disease with (acute) exacerbation; N13.6 Pyonephrosis; Z68.42 Body mass index [BMI] 45.0-49.9, adult; E22.2 Syndrome of inappropriate secretion of antidiuretic hormone; I47.1 Supraventricular tachycardia; E86.0 Dehydration; D69.6 Thrombocytopenia, unspecified; E66.01 Morbid (severe) obesity due to excess calories; E88.09 Other disorders of plasma-protein metabolism, not elsewhere classified; E87.6 Hypokalemia; I48.91 Unspecified atrial fibrillation; K43.9 Ventral hernia without obstruction or gangrene; K57.90 Diverticulosis of intestine, part unspecified, without perforation or abscess without bleeding; R65.20 Severe sepsis without septic shock; Z87.442 Personal history of urinary calculi; Z91.19 Patient's noncompliance with other medical treatment and regimen; Z82.3 Family history of stroke; Z83.3 Family history of diabetes mellitus; Z82.0 Family history of epilepsy and other diseases of the nervous system; Z80.9 Family history of malignant neoplasm, unspecified
CPT/HCPCS: 36415; 36600; 50432; 71045; 74018; 74176; 74177; 78580; 80048; 80053; 81001; 82550; 82803; 82948; 83605; 83874; 84145; 84436; 84443; 84484; 85025; 85027; 85610; 85730; 87040; 87071; 87076; 87077; 87088; 87186; 87205; 87804; 93005; 93306; 94640; 94664; 97039; 99156; A9540; C1729; C1894; G0378; J0696; J1644; J1650; J1815; J1885; J1956; J2185; J2250; J2310; J2405; J3010; J3490; J7030; J7040; Q9967

== ENCOUNTER 2019-07-18 14:13 | Emergency (ER) | payer SELFPAY ==
[~2019-07-18 14:13] MED LIST changes: -LEVO750T46 PO
== END 2019-07-18 16:03 | disposition home or self-care (01) ==
LOC: EDH 14:13
DX: G89.18 Other acute postprocedural pain (principal); E11.9 Type 2 diabetes mellitus without complications

== ENCOUNTER 2019-08-18 16:24 | Inpatient (IN) | payer SELFPAY ==
[~2019-08-18] VITALS: Ht 165.1 cm; Wt 122.9 kg
[2019-08-18] MEDS: CEFTRIAXONE SODIUM 2 GM VIAL IVP SCH (10:00)
[2019-08-18] MEDS: FAMOTIDINE 20MG TAB 20 MG TAB PO SCH (10:00)
[2019-08-18] MEDS: INSULIN HUMULIN R 100 UNIT/ML 3ML SQ SCH (10:00)
[2019-08-18 17:01] LABS: BASOPHILS % (AUTO) 0.8 % (0.0-5.0); HEMATOCRIT 43.3 % (42-54); MEAN CORPUSCULAR HEMOGLOBIN 27.9 pg (27.0-33.0); MEAN CORPUSCULAR VOLUME 84.6 fL (79-99); MONOCYTES % (AUTO) 9.9 % (3.0-13.0); NEUTROPHILS % (AUTO) 54.8 % (40.0-77.0); PLATELET COUNT (AUTO) 365 K/uL (130-400); RED BLOOD CELL COUNT(AUTO) 5.12 MIL/uL (4.50-6.20); RED CELL DISTRIBUTION WIDTH 13.6 % (11.0-15.5); WHITE BLOOD COUNT (AUTO) 8.6 K/uL (4.8-10.8)
[2019-08-18 17:06] LABS: APPEARANCE,URINE Cloudy (CLEAR); BILIRUBIN,URINE Negative (NEGATIVE); COLOR,URINE Dark Yellow (YELLOW); GLUCOSE, URINE (UA) >=1000 mg/dL (NEGATIVE); KETONES,URINE Negative (NEGATIVE); LEUKOCYTE ESTERASE ,URINE Moderate (NEGATIVE); NITRATE,URINE Negative (NEGATIVE); OCCULT BLOOD,URINE Trace (NEGATIVE); PH,URINE 5.5 (5.0-8.0); PROTEIN,URINE POS 1+ mg/dL (NEGATIVE)
[2019-08-18 17:07] LABS: CREATININE 1.6 mg/dL (0.5-1.5); POTASSIUM 4.1 mmol/L (3.5-5.1)
[2019-08-18 17:25] LABS: BACTERIA,URINE Moderate /HPF (None Seen); MUCUS,URINE Moderate LPF (None Seen); SQUAMOUS EPITHELIAL CELL,UR 0-2 /HPF (0-2)
[2019-08-18] MEDS ORDERED: MORPHINE SULFATE 4 MG/1ML SYG ONE (18:01)
[2019-08-18] MEDS ORDERED: ONDANSETRON HCL 4 MG/2 ML VIAL ONE (18:09)
[2019-08-18] MEDS ORDERED: DEXTROSE 50%-WATER 50 ML DISP.SYRIN IV PRN (19:30)
[2019-08-18] MEDS ORDERED: GLUCAGON 1MG KIT 1 MG ML IM PRN (19:30)
[2019-08-18] MEDS ORDERED: ONDANSETRON HCL 4 MG/2 ML VIAL IV PRN (19:45)
[2019-08-18] MEDS ORDERED: ACETAMINOPHEN 325 MG TAB PO PRN ×2 (19:45)
[2019-08-18] MEDS ORDERED: NITROGLYCERIN 0.4 MG SL TAB SL PRN (19:45)
[2019-08-18] MEDS ORDERED: HYDROCODONE/ACETAMINOPHEN 5/325 MG TAB PO PRN (19:45)
[2019-08-18] MEDS ORDERED: FAMOTIDINE 20MG TAB 20 MG TAB ONE (20:12)
[2019-08-18] MEDS ORDERED: CEFTRIAXONE SODIUM 2 GM VIAL ONE (20:12)
[2019-08-18] MEDS ORDERED: SODIUM CHLORIDE 0.9% 100 ML IV ONE (20:13)
[2019-08-18 20:24] LABS: HEMOGLOBIN A1C 8.2 % (4.0-6.0)
[2019-08-18] MEDS ORDERED: HYDROCODONE/ACETAMINOPHEN 5/325 MG TAB ONE (23:19)
[2019-08-19 04:21] LABS: HEMATOCRIT 40.5 % (42-54); MEAN CORPUSCULAR HEMOGLOBIN 27.8 pg (27.0-33.0); MEAN CORPUSCULAR HGB CONC 32.6 g/dL (32.0-36.0); MEAN CORPUSCULAR VOLUME 85.3 fL (79-99); PLATELET COUNT (AUTO) 327 K/uL (130-400); RED BLOOD CELL COUNT(AUTO) 4.75 MIL/uL (4.50-6.20); RED CELL DISTRIBUTION WIDTH 13.7 % (11.0-15.5); WHITE BLOOD COUNT (AUTO) 10.6 K/uL (4.8-10.8)
[2019-08-19 04:31] LABS: INR 0.94 (0.85-1.15); PARTIAL THROMBOPLASTIN TIME 29.4 SEC (26.3-35.5); PROTHROMBIN TIME 9.9 SEC (9.6-11.6)
[2019-08-19 04:41] LABS: ALBUMIN 2.9 g/dL (3.5-5.0); BILIRUBIN,TOTAL 0.2 mg/dL (0.2-1.0); CREATININE 1.2 mg/dL (0.5-1.5); MAGNESIUM 1.5 mg/dL (1.80-2.40); POTASSIUM 4.1 mmol/L (3.5-5.1); TOTAL PROTEIN, SERUM 7.2 g/dL (6.0-8.3)
[2019-08-19 06:18] LABS: BASOPHILS % (MANUAL) 1 % (0-2); EOSINOPHILS % (MANUAL) 7 % (1-6); LYMPHOCYTES % (MANUAL) 25 % (22-44); MAN.DIFF COMMENT-IMPRESSION MANUAL DIFFERENTIAL; MONOCYTES % (MANUAL) 7 % (2-9); SEGMENTED NEUTROPHILS % 60 % (40-70)
[2019-08-19 06:19] LABS: PLATELET MORPHOLOGY COMMENT ADEQUATE
[2019-08-19] MEDS: INSULIN HUMULIN R 100 UNIT/ML 3ML SQ SCH ×4 (07:30→20:59)
[2019-08-19 08:00] VITALS: BP 123/75
[2019-08-19] MEDS ORDERED: METF-444 PO (08:16)
[2019-08-19] MEDS ORDERED: ASPI500T19 PO (08:16)
[2019-08-19] MEDS ORDERED: FLU VACC QS2019-20 36MOS UP/PF 60 MCG/0.5 ML ML IM SCH ×2 (08:45→09:00)
[2019-08-19] MEDS ORDERED: LIDOCAINE HCL 1% MDV 50ML VIAL ONE (10:39)
[2019-08-19] MEDS ORDERED: IODIXANOL 320 MG/ML 100 ML VIAL ONE (10:39)
[2019-08-19] MEDS ORDERED: IOHEXOL-350 50ML VIAL IV ONE (11:06)
[2019-08-19 11:35] VITALS: BP 132/63
--- NOTE | 2019-08-19 12:00 | NUR ---
received pt back from nephrostomy tube exchange, right flank insertion site wnl, tube sutured in place with drainage bag in place, pt denies pain.
[2019-08-19] MEDS ORDERED: MAGNESIUM 2GM PREMIX 50ML 50 ML IV ONE (12:30)
[2019-08-19] MEDS ORDERED: MAGNESIUM 2GM PREMIX 50ML 50 ML IV PRN (12:30)
[2019-08-19] MEDS: FAMOTIDINE 20MG TAB 20 MG TAB PO SCH ×2 (12:33→20:55)
[2019-08-19] MEDS: HYDROCODONE/ACETAMINOPHEN 5/325 MG TAB PO PRN ×2 (12:49→18:40)
[2019-08-19 16:00] VITALS: BP 126/79
--- NOTE | 2019-08-19 18:35 | NUR ---
cm note met with patient and states resides at home alone, independent with ambulation and adls. no dme. states dc plan is back to [place] no dc needs. able to get his own meds in [place]. Addendum: 08/19/19 at 1837 by APOORVA AZUL CM Amended: Links added.
[2019-08-19 19:20] VITALS: BP 135/71
[2019-08-19] MEDS: CEFTRIAXONE SODIUM 2 GM VIAL IVP SCH (20:55)
[2019-08-19 23:25] VITALS: BP 122/64
[2019-08-20 03:20] VITALS: BP 135/76
[2019-08-20 05:03] LABS: BASOPHILS % (AUTO) 0.5 % (0.0-5.0); EOSINOPHILS % (AUTO) 3.1 % (0.0-8.0); HEMATOCRIT 43.3 % (42-54); LYMPHOCYTES % (AUTO) 22.2 % (21.0-51.0); MEAN CORPUSCULAR HEMOGLOBIN 27.5 pg (27.0-33.0); MEAN CORPUSCULAR HGB CONC 31.9 g/dL (32.0-36.0); MEAN CORPUSCULAR VOLUME 86.4 fL (79-99); MONOCYTES % (AUTO) 7.3 % (3.0-13.0); NEUTROPHILS % (AUTO) 66.6 % (40.0-77.0); PLATELET COUNT (AUTO) 325 K/uL (130-400); RED BLOOD CELL COUNT(AUTO) 5.01 MIL/uL (4.50-6.20); RED CELL DISTRIBUTION WIDTH 13.8 % (11.0-15.5); WHITE BLOOD COUNT (AUTO) 9.8 K/uL (4.8-10.8)
[2019-08-20] MEDS: HYDROCODONE/ACETAMINOPHEN 5/325 MG TAB PO PRN ×2 (05:06→19:14)
[2019-08-20 05:20] LABS: CREATININE 1.3 mg/dL (0.5-1.5); POTASSIUM 4.2 mmol/L (3.5-5.1)
[2019-08-20 07:30] VITALS: BP 121/79
[2019-08-20] MEDS: INSULIN HUMULIN R 100 UNIT/ML 3ML SQ SCH ×4 (07:30→21:00)
[2019-08-20] MEDS: FAMOTIDINE 20MG TAB 20 MG TAB PO SCH ×2 (08:39→21:48)
[2019-08-20 11:00] VITALS: BP 120/74
[2019-08-20 16:00] VITALS: BP 122/76
[2019-08-20] MEDS: CEFTRIAXONE SODIUM 2 GM VIAL IVP SCH (19:13)
[2019-08-20 19:15] VITALS: BP 125/68
--- NOTE | 2019-08-20 20:30 | NUR ---
PT GETTING HIS IVPB ANTIBOTICS , OF ROCEPHIN 2 MG IVPB. PT . IS UNABLE TO GO HOME, PT STATED THAT HE DID NOT HAVE A RIDE HOME, AND WANTED HIS IV ANTIBOTICS IV TO BE GIVEN . BECAUSE HE DID NOT WANT TO COME BACK TO THE HOSPITAL IF HE HAD A INFECTION . REVIEW ORDER . STATED THAT HE COULD GO HOME IN AM.
[2019-08-20 23:22] VITALS: BP 118/77
[2019-08-21 03:10] VITALS: BP 121/80
[2019-08-21] MEDS: INSULIN HUMULIN R 100 UNIT/ML 3ML SQ SCH (07:08)
[2019-08-21 07:36] VITALS: BP 121/85
[2019-08-21] MEDS: FAMOTIDINE 20MG TAB 20 MG TAB PO SCH (08:37)
== END 2019-08-21 09:02 | disposition home or self-care (01) | DRG 699 ==
LOC: EDH 16:24 → EDHIP 19:09 → 4BH 08-19 08:07
PROVIDERS: ADMIT Internal Medicine; ATTEND Internal Medicine
PROC: 0T25X0Z Change Drainage Device in Kidney, External Approach (ICD-10-PCS; principal; 2019-08-18)
PROC: 3E02340 Introduction of Influenza Vaccine into Muscle, Percutaneous Approach (ICD-10-PCS; 2019-08-18)
DX: T83.092A Other mechanical complication of nephrostomy catheter, initial encounter (principal); T83.511A Infection and inflammatory reaction due to indwelling urethral catheter, initial encounter; E11.65 Type 2 diabetes mellitus with hyperglycemia; Y84.6 Urinary catheterization as the cause of abnormal reaction of the patient, or of later complication, without mention of misadventure at the time of the procedure; Z72.0 Tobacco use; Z87.442 Personal history of urinary calculi; Z93.6 Other artificial openings of urinary tract status; Y92.89 Other specified places as the place of occurrence of the external cause; Z82.3 Family history of stroke; Z83.3 Family history of diabetes mellitus; Z82.0 Family history of epilepsy and other diseases of the nervous system; Z80.9 Family history of malignant neoplasm, unspecified; Z23 Encounter for immunization
CPT/HCPCS: 36415; 50435; 76770; 80048; 80053; 81001; 82948; 83036; 83735; 84145; 85025; 85610; 85730; 87077; 87088; 87186; C1729; C1769; C1894; G0378; J0696; J1644; J2270; J2405; J3475; J3490; Q2035; Q9967

== ENCOUNTER 2019-09-09 14:12 | Inpatient (IN) | payer SELFPAY ==
[~2019-09-09] VITALS: Ht 165.1 cm; Wt 125.6 kg
[~2019-09-09 14:12] MED LIST changes: -AEC81 PO; +METF-444 PO
[2019-09-09 16:02] LABS: BASOPHILS % (AUTO) 0.3 % (0.0-5.0); EOSINOPHILS % (AUTO) 0.6 % (0.0-8.0); HEMATOCRIT 47.6 % (42-54); LYMPHOCYTES % (AUTO) 9.1 % (21.0-51.0); MEAN CORPUSCULAR HEMOGLOBIN 28.2 pg (27.0-33.0); MEAN CORPUSCULAR HGB CONC 33.4 g/dL (32.0-36.0); MEAN CORPUSCULAR VOLUME 84.4 fL (79-99); MONOCYTES % (AUTO) 8.9 % (3.0-13.0); NEUTROPHILS % (AUTO) 80.6 % (40.0-77.0); PLATELET COUNT (AUTO) 296 K/uL (130-400); RED BLOOD CELL COUNT(AUTO) 5.64 MIL/uL (4.50-6.20); WHITE BLOOD COUNT (AUTO) 14.7 K/uL (4.8-10.8)
[2019-09-09] MEDS ORDERED: MORPHINE SULFATE 4 MG/1ML SYG ONE (16:07)
[2019-09-09] MEDS ORDERED: SODIUM CHLORIDE 0.9% 1000ML 1,000 ML IV ONE (16:12)
[2019-09-09 16:27] LABS: APPEARANCE,URINE Cloudy (CLEAR); BILIRUBIN,URINE Negative (NEGATIVE); COLOR,URINE Yellow (YELLOW); GLUCOSE, URINE (UA) Negative (NEGATIVE); KETONES,URINE Negative (NEGATIVE); LEUKOCYTE ESTERASE ,URINE Large (NEGATIVE); NITRATE,URINE Positive (NEGATIVE); OCCULT BLOOD,URINE Large (NEGATIVE); PH,URINE 5.5 (5.0-8.0); PROTEIN,URINE POS 2+ mg/dL (NEGATIVE)
[2019-09-09 16:40] LABS: BACTERIA,URINE Many /HPF (None Seen); MUCUS,URINE Moderate LPF (None Seen); RBC,URINE 51-100 /HPF (0-1); SQUAMOUS EPITHELIAL CELL,UR Few /HPF (0-2)
[2019-09-09 17:47] LABS: CREATININE 1.2 mg/dL (0.5-1.5); POTASSIUM 4.1 mmol/L (3.5-5.1)
[2019-09-09 17:52] LABS: ALBUMIN 3.3 g/dL (3.5-5.0); BILIRUBIN,TOTAL 0.3 mg/dL (0.2-1.0)
[2019-09-09] MEDS ORDERED: CEFTRIAXONE SODIUM 1 GM ONE (18:24)
[2019-09-09] MEDS ORDERED: SODIUM CHLORIDE 0.9% 1000ML 1,000 ML IV SCH (18:25)
[2019-09-09] MEDS ORDERED: SODIUM CHLORIDE 0.9% 100 ML IV ONE (18:25)
[2019-09-09] MEDS ORDERED: MORPHINE SULFATE 2 MG/ML 1ML SYG IV PRN (18:30)
[2019-09-09] MEDS ORDERED: VANCOMYCIN PROTOCOL PER PHARMACY IV PRN (18:30)
[2019-09-09] MEDS ORDERED: HYDRALAZINE HCL 20 MG/ML VIAL IV PRN (20:00)
[2019-09-09] MEDS ORDERED: ONDANSETRON HCL 4 MG/2 ML VIAL IV PRN (20:00)
[2019-09-09] MEDS ORDERED: ACETAMINOPHEN 325 MG TAB PO PRN ×2 (20:00)
[2019-09-09] MEDS ORDERED: FAMOTIDINE/PF 20 MG/2 ML VIAL IV SCH (21:00)
[2019-09-09] MEDS ORDERED: ZOSYN 3.375GM+NS 50ML 50 ML IV SCH (21:00)
[2019-09-09] MEDS: ZOSYN 3.375GM+NS 50ML 50 ML IV SCH (21:00)
[2019-09-09] MEDS: FAMOTIDINE/PF 20 MG/2 ML VIAL IV SCH (21:00)
[2019-09-09] MEDS ORDERED: MORPHINE SULFATE 2 MG/ML 1ML SYG ONE (21:38)
[2019-09-09] MEDS ORDERED: ZOSYN 3.375GM+NS 50ML 50 ML IV ONE (21:38)
[2019-09-09] MEDS ORDERED: FAMOTIDINE/PF 20 MG/2 ML VIAL IV ONE (21:39)
[2019-09-10] MEDS ORDERED: ACETAMINOPHEN 325 MG TAB ONE ×3 (00:44→21:23)
[2019-09-10] MEDS ORDERED: MORPHINE SULFATE 2 MG/ML 1ML SYG ONE ×3 (01:44→21:37)
[2019-09-10] MEDS: SODIUM CHLORIDE 0.9% 1000ML 1,000 ML IV SCH ×3 (02:15→22:39)
[2019-09-10] MEDS ORDERED: ZOSYN 3.375GM+NS 50ML 50 ML IV ONE ×2 (02:46→13:15)
[2019-09-10 04:14] LABS: BASOPHILS % (AUTO) 0.4 % (0.0-5.0); EOSINOPHILS % (AUTO) 0.7 % (0.0-8.0); HEMATOCRIT 43.7 % (42-54); LYMPHOCYTES % (AUTO) 15.2 % (21.0-51.0); MEAN CORPUSCULAR HGB CONC 33.4 g/dL (32.0-36.0); MEAN CORPUSCULAR VOLUME 83.7 fL (79-99); MONOCYTES % (AUTO) 10.6 % (3.0-13.0); NEUTROPHILS % (AUTO) 72.8 % (40.0-77.0); PLATELET COUNT (AUTO) 255 K/uL (130-400); RED BLOOD CELL COUNT(AUTO) 5.22 MIL/uL (4.50-6.20); RED CELL DISTRIBUTION WIDTH 14.2 % (11.0-15.5)
[2019-09-10] MEDS: ZOSYN 3.375GM+NS 50ML 50 ML IV SCH ×3 (05:00→21:11)
[2019-09-10] MEDS: INSULIN HUMULIN R 100 UNIT/ML 3ML SQ SCH ×4 (07:30→21:12)
[2019-09-10] MEDS ORDERED: FAMOTIDINE/PF 20 MG/2 ML VIAL IV ONE (08:15)
[2019-09-10] MEDS: FAMOTIDINE/PF 20 MG/2 ML VIAL IV SCH ×2 (09:00→21:11)
[2019-09-10] MEDS ORDERED: PANTOPRAZOLE SODIUM 80 MG in SODIUM CHLORIDE 0.9% 100 ML IV SCH (09:00)
[2019-09-10 16:40] VITALS: BP 129/67
[2019-09-10] MEDS: MORPHINE SULFATE 2 MG/ML 1ML SYG IV PRN (17:39)
--- NOTE | 2019-09-10 18:25 | NUR ---
D/C PLAN CM spoke to pt regarding d/c planning. Pt is ind. and lives with cousin. States cousin named Simona assists with transportation as needed. Pt denies having any DME at home. CM provided community resources packet. Plan to home. CM to f/u. Addendum: 09/10/19 at 1827 by GABBI DAWSON CM Amended: Links added.
[2019-09-10 19:30] VITALS: BP 134/75
--- NOTE | 2019-09-10 20:00 | NUR ---
PATIENT AWAKE AND ALERT. VOICES ALL NEEDS. NO COMPLAINTS OF PAIN VOICED AT THIS TIME. MEDICATED FOR A TEMP OF 101.0 WITH TYLENOL. RESP EVEN AND UNLABORED. NO SOB NOTED. ON ROOM AIR. NEPHROSTOMY TUBE PATENT. NO SIGN SOF DISTRESS NOTED. CALL LIGHT WITHIN REACH. WILL CONTINUE TO BE OBSERVED. Addendum: 09/11/19 at 0008 by BHUPENDRA MENESES RN RN Amended: Links added.
[2019-09-10 23:19] VITALS: BP 121/73
--- NOTE | 2019-09-11 00:56 | NUR ---
HOSPITALIST AWARE OF HEART RATE IN THE 130'S. PATIENT AWAKE AND ALERT. TEMP OF 102.5. MEDICATED PRN PER MARS. BLOOD CULTURES ORDERED PER PROTOCOL. NEW ORDERS RECEIVED AND CARRIED OUT. CALL LIGHT WITHIN REACH. WILL CONTINUE TO BE OBSERVED. Addendum: 09/11/19 at 0102 by BHUPENDRA MENESES RN RN Amended: Links added.
[2019-09-11 03:45] VITALS: BP 141/77
[2019-09-11] MEDS ORDERED: ZOSYN 3.375GM+NS 50ML 50 ML IV ONE (05:48)
[2019-09-11] MEDS ORDERED: INSULIN HUMULIN R 100 UNIT/ML 3ML ONE (05:49)
[2019-09-11 06:24] LABS: BASOPHILS % (AUTO) 0.3 % (0.0-5.0); EOSINOPHILS % (AUTO) 0.3 % (0.0-8.0); HEMATOCRIT 44.7 % (42-54); LYMPHOCYTES % (AUTO) 7.1 % (21.0-51.0); MEAN CORPUSCULAR HEMOGLOBIN 27.6 pg (27.0-33.0); MEAN CORPUSCULAR HGB CONC 32.4 g/dL (32.0-36.0); MONOCYTES % (AUTO) 7.6 % (3.0-13.0); NEUTROPHILS % (AUTO) 84.2 % (40.0-77.0); PLATELET COUNT (AUTO) 217 K/uL (130-400); RED BLOOD CELL COUNT(AUTO) 5.26 MIL/uL (4.50-6.20); RED CELL DISTRIBUTION WIDTH 14.1 % (11.0-15.5); WHITE BLOOD COUNT (AUTO) 14.5 K/uL (4.8-10.8)
[2019-09-11] MEDS: ZOSYN 3.375GM+NS 50ML 50 ML IV SCH ×3 (06:33→21:25)
[2019-09-11] MEDS: INSULIN HUMULIN R 100 UNIT/ML 3ML SQ SCH ×4 (06:35→21:00)
[2019-09-11 07:17] LABS: ALBUMIN 2.9 g/dL (3.5-5.0); BILIRUBIN,TOTAL 0.5 mg/dL (0.2-1.0); CREATININE 1.4 mg/dL (0.5-1.5); POTASSIUM 4.2 mmol/L (3.5-5.1); TOTAL PROTEIN, SERUM 7.6 g/dL (6.0-8.3)
[2019-09-11 08:00] VITALS: BP 135/91
[2019-09-11] MEDS: SODIUM CHLORIDE 0.9% 1000ML 1,000 ML IV SCH ×2 (08:15→17:09)
[2019-09-11] MEDS: FAMOTIDINE/PF 20 MG/2 ML VIAL IV SCH ×2 (08:28→21:25)
[2019-09-11] MEDS: MORPHINE SULFATE 2 MG/ML 1ML SYG IV PRN ×3 (08:28→21:25)
--- NOTE | 2019-09-11 09:49 | NUR ---
PAGED DR COLLIER REGARDING CONSULT SPOKE TO HENRI STATED SHE WILL MAKE DR COLLIER AWARE. PENDING CB
[2019-09-11 11:55] VITALS: BP 130/70
[2019-09-11 16:00] VITALS: BP 132/82
--- NOTE | 2019-09-11 18:36 | NUR ---
DR NANDO HAMILTON GAVE NEW ORDERS, NOTED AND CARRIEED OUT
[2019-09-11 19:10] VITALS: BP 143/90
[2019-09-11 23:56] VITALS: BP 122/81
[2019-09-12] VITALS (12 sets, daily range): BP systolic 97–140; BP diastolic 48–89
[2019-09-12 05:04] LABS: BASOPHILS % (AUTO) 0.4 % (0.0-5.0); EOSINOPHILS % (AUTO) 1.6 % (0.0-8.0); HEMATOCRIT 40.9 % (42-54); LYMPHOCYTES % (AUTO) 16.8 % (21.0-51.0); MEAN CORPUSCULAR HEMOGLOBIN 27.8 pg (27.0-33.0); MEAN CORPUSCULAR HGB CONC 32.5 g/dL (32.0-36.0); MEAN CORPUSCULAR VOLUME 85.6 fL (79-99); MONOCYTES % (AUTO) 17.5 % (3.0-13.0); NEUTROPHILS % (AUTO) 63.3 % (40.0-77.0); PLATELET COUNT (AUTO) 210 K/uL (130-400); RED BLOOD CELL COUNT(AUTO) 4.78 MIL/uL (4.50-6.20); RED CELL DISTRIBUTION WIDTH 14.1 % (11.0-15.5); WHITE BLOOD COUNT (AUTO) 10.7 K/uL (4.8-10.8)
[2019-09-12] MEDS: SODIUM CHLORIDE 0.9% 1000ML 1,000 ML IV SCH ×3 (05:17→20:13)
[2019-09-12] MEDS: ZOSYN 3.375GM+NS 50ML 50 ML IV SCH ×3 (05:17→20:13)
[2019-09-12 05:37] LABS: CREATININE 1.3 mg/dL (0.5-1.5); POTASSIUM 3.7 mmol/L (3.5-5.1)
[2019-09-12] MEDS: INSULIN HUMULIN R 100 UNIT/ML 3ML SQ SCH ×5 (05:54→20:13)
[2019-09-12] MEDS: MORPHINE SULFATE 2 MG/ML 1ML SYG IV PRN ×3 (07:32→20:12)
[2019-09-12] MEDS: FAMOTIDINE/PF 20 MG/2 ML VIAL IV SCH ×2 (10:42→20:12)
[2019-09-12] MEDS ORDERED: IODIXANOL 320 MG/ML 100 ML VIAL ONE (12:22)
[2019-09-12] MEDS ORDERED: LIDOCAINE HCL 1% MDV 50ML VIAL ONE (12:23)
[2019-09-12] MEDS ORDERED: MIDAZOLAM HCL 1 MG/ML 2ML VIAL ONE (12:49)
[2019-09-12] MEDS ORDERED: FENTANYL CITRATE PF 50 MCG/1 ML 2ML VIAL ONE (12:49)
[2019-09-12 12:50] LABS: INR 1.06 (0.85-1.15); PARTIAL THROMBOPLASTIN TIME 33.1 SEC (26.3-35.5); PROTHROMBIN TIME 11.1 SEC (9.6-11.6)
[2019-09-13] MEDS: MORPHINE SULFATE 2 MG/ML 1ML SYG IV PRN ×3 (00:03→13:45)
[2019-09-13 03:15] VITALS: BP 128/75
[2019-09-13] MEDS: ZOSYN 3.375GM+NS 50ML 50 ML IV SCH ×3 (05:13→19:37)
[2019-09-13 05:23] LABS: BASOPHILS % (AUTO) 0.2 % (0.0-5.0); EOSINOPHILS % (AUTO) 1.4 % (0.0-8.0); HEMATOCRIT 40.1 % (42-54); LYMPHOCYTES % (AUTO) 12.2 % (21.0-51.0); MEAN CORPUSCULAR HEMOGLOBIN 27.4 pg (27.0-33.0); MEAN CORPUSCULAR HGB CONC 32.4 g/dL (32.0-36.0); MEAN CORPUSCULAR VOLUME 84.6 fL (79-99); MONOCYTES % (AUTO) 11.6 % (3.0-13.0); NEUTROPHILS % (AUTO) 74.1 % (40.0-77.0); PLATELET COUNT (AUTO) 229 K/uL (130-400); RED BLOOD CELL COUNT(AUTO) 4.74 MIL/uL (4.50-6.20); RED CELL DISTRIBUTION WIDTH 13.8 % (11.0-15.5); WHITE BLOOD COUNT (AUTO) 12.9 K/uL (4.8-10.8)
[2019-09-13 05:42] LABS: CREATININE 1.2 mg/dL (0.5-1.5); POTASSIUM 3.8 mmol/L (3.5-5.1)
[2019-09-13] MEDS: INSULIN HUMULIN R 100 UNIT/ML 3ML SQ SCH ×4 (06:00→22:11)
[2019-09-13 07:43] VITALS: BP 128/71
[2019-09-13] MEDS: FAMOTIDINE/PF 20 MG/2 ML VIAL IV SCH ×2 (10:13→19:37)
[2019-09-13] MEDS: SODIUM CHLORIDE 0.9% 1000ML 1,000 ML IV SCH ×2 (10:15→19:36)
[2019-09-13 11:12] VITALS: BP 119/63
--- NOTE | 2019-09-13 14:26 | NUR ---
PAGED DR COLLIER REGARDING PT STATUS SPOKE TO JOSÉ MIGUEL. PENDING CALL BACK
--- NOTE | 2019-09-13 14:34 | NUR ---
DR COLLIER PER DR COLLIER OK TO UNCLAMP NEPHROSTOMY TUBE AND CONNECT TO GRAVITY DRAIN
[2019-09-13 16:00] VITALS: BP 121/79
[2019-09-13 19:24] VITALS: BP 122/79
[2019-09-13 23:28] VITALS: BP 127/80
[2019-09-14 03:47] VITALS: BP 111/90
[2019-09-14] MEDS: ZOSYN 3.375GM+NS 50ML 50 ML IV SCH ×3 (05:53→20:54)
[2019-09-14] MEDS: INSULIN HUMULIN R 100 UNIT/ML 3ML SQ SCH ×4 (05:54→20:54)
[2019-09-14] MEDS: SODIUM CHLORIDE 0.9% 1000ML 1,000 ML IV SCH ×2 (05:56→11:49)
[2019-09-14 07:30] VITALS: BP 124/80
[2019-09-14] MEDS: FAMOTIDINE/PF 20 MG/2 ML VIAL IV SCH ×2 (08:37→20:54)
[2019-09-14 11:00] VITALS: BP 127/82
[2019-09-14] MEDS ORDERED: LACTULOSE 20 GM/30 ML UDCUP PO PRN (11:30)
[2019-09-14] MEDS ORDERED: MAGNESIUM CITRATE 296 ML SOLUTION PO SCH (11:30)
[2019-09-14 11:41] LABS: BASOPHILS % (AUTO) 0.4 % (0.0-5.0); EOSINOPHILS % (AUTO) 2.4 % (0.0-8.0); HEMATOCRIT 40.4 % (42-54); LYMPHOCYTES % (AUTO) 19.4 % (21.0-51.0); MEAN CORPUSCULAR HEMOGLOBIN 27.5 pg (27.0-33.0); MEAN CORPUSCULAR HGB CONC 32.4 g/dL (32.0-36.0); MEAN CORPUSCULAR VOLUME 84.7 fL (79-99); MONOCYTES % (AUTO) 8.6 % (3.0-13.0); PLATELET COUNT (AUTO) 261 K/uL (130-400); RED BLOOD CELL COUNT(AUTO) 4.77 MIL/uL (4.50-6.20); RED CELL DISTRIBUTION WIDTH 13.8 % (11.0-15.5); WHITE BLOOD COUNT (AUTO) 9.1 K/uL (4.8-10.8)
[2019-09-14 11:51] LABS: CREATININE 1.2 mg/dL (0.5-1.5); POTASSIUM 4.1 mmol/L (3.5-5.1)
[2019-09-14] MEDS ORDERED: MAGNESIUM CITRATE 296 ML SOLUTION ONE (11:51)
[2019-09-14 11:55] LABS: ALBUMIN 2.5 g/dL (3.5-5.0); BILIRUBIN,TOTAL 0.3 mg/dL (0.2-1.0); TOTAL PROTEIN, SERUM 7.5 g/dL (6.0-8.3)
[2019-09-14 16:00] VITALS: BP 127/87
--- NOTE | 2019-09-14 16:13 | NUR ---
dr simmons paged regarding plan for pt. pt states he is no longer in pain and wants nephrostomy tube out. spoke to nellie
--- NOTE | 2019-09-14 17:10 | NUR ---
CALL BACK PER DUKE AT DR COLLIER OFFICE- DR COLLIER STATES "READ THE PROGRESS NOTE OR CALL HOSPITALIST" REFERRING TO PT PLAN. HOWEVER, PROGRESS NOTE STATES UNCLEAR PLAN TO REMOVE AND/OR KEEP NEPH. TUBE. PLEASE REFER TO CONSULTATION NOTE BY DR COLLIER. PLAN DISCUSSED WITH PATIENT. PT STATES HE WANTS THE TUBE REMOVED EITHER WAY. PT WILL BE SCHEDULED FOR NEPHROSTOMY TUBE REMOVAL 09/15/19
--- NOTE | 2019-09-14 17:20 | NUR ---
Nutrition Intervention: Nutrition screen based on LOS x 5 days. Pt. on 75gm CCD Renal Non Dialysis diet with good p.o. intake, as per pt. Labs reviewed(Alb 2.5, BG 136). LBM: 09/10/2019. Pt. on lactulose for constipation. SR-18, right nephrostomy tube. Pt. declined Diabetic diet education. Recommendations: 1) Rec. 75gm CCD diet and discontinue Renal Non Dialysis rest. 2) Rec. 30ml ProMod BID with B'fast and dinner meals. 3) Continue to monitor pt's nutritional status. 4) Consult RD as nutrition concerns arise. Addendum: 09/14/19 at [address] Amended: Links added.
[2019-09-14 19:07] VITALS: BP 131/79
[2019-09-14 22:56] VITALS: BP 131/77
[2019-09-15 03:33] VITALS: BP 137/79
[2019-09-15] MEDS: ZOSYN 3.375GM+NS 50ML 50 ML IV SCH ×3 (05:03→21:29)
[2019-09-15] MEDS: SODIUM CHLORIDE 0.9% 1000ML 1,000 ML IV SCH ×3 (05:03→22:16)
[2019-09-15] MEDS: INSULIN HUMULIN R 100 UNIT/ML 3ML SQ SCH ×4 (05:45→21:30)
[2019-09-15 07:45] VITALS: BP 126/86
[2019-09-15] MEDS: FAMOTIDINE/PF 20 MG/2 ML VIAL IV SCH ×2 (09:24→21:29)
[2019-09-15 11:00] VITALS: BP 134/93
[2019-09-15 16:00] VITALS: BP 135/88
[2019-09-15 20:08] VITALS: BP 136/83
[2019-09-16 00:08] VITALS: BP 154/83
[2019-09-16 04:08] VITALS: BP 127/79
[2019-09-16] MEDS: INSULIN HUMULIN R 100 UNIT/ML 3ML SQ SCH ×5 (05:49→21:00)
[2019-09-16] MEDS: SODIUM CHLORIDE 0.9% 1000ML 1,000 ML IV SCH (05:49)
[2019-09-16] MEDS: ZOSYN 3.375GM+NS 50ML 50 ML IV SCH ×3 (05:49→20:04)
[2019-09-16 06:21] LABS: BASOPHILS % (AUTO) 0.4 % (0.0-5.0); EOSINOPHILS % (AUTO) 3.3 % (0.0-8.0); HEMATOCRIT 41.6 % (42-54); LYMPHOCYTES % (AUTO) 23.3 % (21.0-51.0); MEAN CORPUSCULAR HEMOGLOBIN 27.3 pg (27.0-33.0); MEAN CORPUSCULAR HGB CONC 32.5 g/dL (32.0-36.0); MONOCYTES % (AUTO) 8.2 % (3.0-13.0); NEUTROPHILS % (AUTO) 64.2 % (40.0-77.0); PLATELET COUNT (AUTO) 380 K/uL (130-400); RED BLOOD CELL COUNT(AUTO) 4.95 MIL/uL (4.50-6.20); RED CELL DISTRIBUTION WIDTH 13.7 % (11.0-15.5); WHITE BLOOD COUNT (AUTO) 9.7 K/uL (4.8-10.8)
[2019-09-16 06:36] LABS: CREATININE 1.2 mg/dL (0.5-1.5); POTASSIUM 3.8 mmol/L (3.5-5.1)
[2019-09-16 07:30] VITALS: BP 136/70
[2019-09-16] MEDS: FAMOTIDINE/PF 20 MG/2 ML VIAL IV SCH ×2 (09:04→20:04)
[2019-09-16 11:00] VITALS: BP 118/67
[2019-09-16 16:00] VITALS: BP 117/77
--- NOTE | 2019-09-16 18:05 | NUR ---
DRESSING TO NEPHROSTOMY TUBE CHANGED, NO SIGNS OR SYMPTOMS OF INFECTION NOTED TO PUNCTURE SITE.
[2019-09-16 20:13] VITALS: BP 136/73
[2019-09-17 00:51] VITALS: BP 128/60
[2019-09-17 04:00] VITALS: BP 130/76
[2019-09-17] MEDS: ZOSYN 3.375GM+NS 50ML 50 ML IV SCH ×3 (05:30→21:18)
[2019-09-17] MEDS: SODIUM CHLORIDE 0.9% 1000ML 1,000 ML IV SCH ×2 (05:33→14:46)
[2019-09-17] MEDS: INSULIN HUMULIN R 100 UNIT/ML 3ML SQ SCH ×4 (06:28→21:00)
[2019-09-17 08:00] VITALS: BP 127/77
[2019-09-17] MEDS: FAMOTIDINE/PF 20 MG/2 ML VIAL IV SCH ×2 (09:14→21:18)
[2019-09-17 11:00] VITALS: BP 120/68
[2019-09-17 16:00] VITALS: BP 128/70
[2019-09-17 19:00] VITALS: BP 135/74
[2019-09-18] VITALS (7 sets, daily range): BP systolic 132–149; BP diastolic 73–89
[2019-09-18] MEDS: SODIUM CHLORIDE 0.9% 1000ML 1,000 ML IV SCH ×3 (00:15→13:08)
[2019-09-18 05:27] LABS: HEMATOCRIT 43.7 % (42-54); MEAN CORPUSCULAR VOLUME 84.2 fL (79-99); PLATELET COUNT (AUTO) 467 K/uL (130-400); RED BLOOD CELL COUNT(AUTO) 5.19 MIL/uL (4.50-6.20)
[2019-09-18 05:35] LABS: CREATININE 1.2 mg/dL (0.5-1.5); POTASSIUM 3.8 mmol/L (3.5-5.1)
[2019-09-18] MEDS: ZOSYN 3.375GM+NS 50ML 50 ML IV SCH ×3 (05:38→20:06)
[2019-09-18] MEDS: INSULIN HUMULIN R 100 UNIT/ML 3ML SQ SCH ×4 (05:50→20:06)
[2019-09-18] MEDS: FAMOTIDINE/PF 20 MG/2 ML VIAL IV SCH ×2 (10:33→20:06)
[2019-09-18 11:35] LABS: HEMATOCRIT 44.1 % (42-54); MEAN CORPUSCULAR HEMOGLOBIN 26.9 pg (27.0-33.0); MEAN CORPUSCULAR HGB CONC 31.7 g/dL (32.0-36.0); MEAN CORPUSCULAR VOLUME 84.8 fL (79-99); PLATELET COUNT (AUTO) 467 K/uL (130-400); WHITE BLOOD COUNT (AUTO) 9.4 K/uL (4.8-10.8)
[2019-09-18 12:36] LABS: EOSINOPHILS % (MANUAL) 4 % (1-6); LYMPHOCYTES % (MANUAL) 23 % (22-44); MONOCYTES % (MANUAL) 6 % (2-9); SEGMENTED NEUTROPHILS % 67 % (40-70)
[2019-09-18 12:37] LABS: MAN.DIFF COMMENT-IMPRESSION MANUAL DIFFERENTIAL; PLATELET MORPHOLOGY COMMENT ADEQUATE
--- NOTE | 2019-09-18 12:50 | NUR ---
DR. NANDO JAMESD AVA ARREAGA TO INQUIRE IF OKAY TO PROCEED WITH RESCHEDULING OF NEPHROSTOMY TUBE TOMORROW. PATIENTS WBC 9.4, AFEBRILE, AND REPORTS NO PAIN. SPOKE TO DUKE OF DR. COLLIER'S OFFICE [phone], AND SHE TOLD ME SHE WOULD INFORM DR. COLLIER OF [facility]. SPOKE TO MED-SURG DIRECTOR BEN. Sweet REGARDING PENDING PROCEDURE WHICH WAS POSTPONED LAST WEEK PER RADIOLOGIST REQUIREMENTS. MED-SURG DIRECTOR BEN. Sweet TOLD ME HE SPOKE TO SAFETY OFFICER SHEILA Campbell AND WAS TOLD PATIENT MAY HAVE PROCEDURE TOMORROW IF DR. COLLIER ORDERS TO PROCEED WITH SCHEDULING NEPHROSTOMY TUBE REMOVAL.
[2019-09-19 03:00] VITALS: BP 113/60
[2019-09-19] MEDS: ZOSYN 3.375GM+NS 50ML 50 ML IV SCH (04:43)
[2019-09-19 05:01] LABS: BASOPHILS % (AUTO) 0.5 % (0.0-5.0); EOSINOPHILS % (AUTO) 2.9 % (0.0-8.0); LYMPHOCYTES % (AUTO) 25.9 % (21.0-51.0); MEAN CORPUSCULAR HEMOGLOBIN 26.9 pg (27.0-33.0); MEAN CORPUSCULAR HGB CONC 31.9 g/dL (32.0-36.0); MEAN CORPUSCULAR VOLUME 84.5 fL (79-99); MONOCYTES % (AUTO) 7.5 % (3.0-13.0); NEUTROPHILS % (AUTO) 62.5 % (40.0-77.0); PLATELET COUNT (AUTO) 462 K/uL (130-400); RED BLOOD CELL COUNT(AUTO) 5.09 MIL/uL (4.50-6.20); RED CELL DISTRIBUTION WIDTH 13.8 % (11.0-15.5); WHITE BLOOD COUNT (AUTO) 10.8 K/uL (4.8-10.8)
[2019-09-19 05:23] LABS: CREATININE 1.3 mg/dL (0.5-1.5); POTASSIUM 4.1 mmol/L (3.5-5.1)
[2019-09-19] MEDS: INSULIN HUMULIN R 100 UNIT/ML 3ML SQ SCH ×2 (05:54→11:25)
[2019-09-19 07:44] VITALS: BP 149/91
--- NOTE | 2019-09-19 08:42 | NUR ---
RIGHT NEPHROSTOMY TUBE REMOVED AT BEDSIDE. CATHETER REMOVED INTACT. 4X4 GAUZE AND OPSITE DRESSING TO SITE. NO REDNESS OR LEAKAGE TO PUNCTURE SITE. PRIMARY NURSE AT BEDSIDE.
[2019-09-19] MEDS: FAMOTIDINE/PF 20 MG/2 ML VIAL IV SCH (09:08)
[2019-09-19] MEDS: SODIUM CHLORIDE 0.9% 1000ML 1,000 ML IV SCH (09:14)
[2019-09-19 10:48] VITALS: BP 160/99
[2019-09-19] MEDS ORDERED: CEPH500C2 PO (11:22)
[2019-09-19] MEDS ORDERED: CEPHALEXIN 500 MG CAPSULE PO SCH (11:30)
--- NOTE | 2019-09-19 13:00 | NUR ---
DISCHARGE INSTRUCTIONS GIVEN TO PATIENT EDUCATED ON MEDICATION , FOLLOW-UP APPOINTMENT AND SIGN AND SYMPTOM AND SITE CARE TO REPORT TO PHYSICIAN , IV REMOVED WITH CATHETER INTACT AND SITE DRESSED WITH PRESSURE DRESSING PLACED. DENIES PAIN AT THIS TIME. NO QUESTIONS OR CONCERNS WAITING FOR RIDE
== END 2019-09-19 14:06 | disposition home or self-care (01) | DRG 698 ==
LOC: EDH 14:12 → UNDOADMIN 14:13 → EDHIP 14:13 → 4BH 09-10 16:18 → UNDODISIN 09-10 16:30
PROVIDERS: ADMIT Family Medicine; ATTEND Family Medicine
PROC: 0T25X0Z Change Drainage Device in Kidney, External Approach (ICD-10-PCS; principal; 2019-09-12)
DX: T83.012A Breakdown (mechanical) of nephrostomy catheter, initial encounter (principal); A41.9 Sepsis, unspecified organism; N10 Acute pyelonephritis; Z68.42 Body mass index [BMI] 45.0-49.9, adult; T83.022A Displacement of nephrostomy catheter, initial encounter; Y73.2 Prosthetic and other implants, materials and accessory gastroenterology and urology devices associated with adverse incidents; E86.0 Dehydration; R00.0 Tachycardia, unspecified; I10 Essential (primary) hypertension; E66.01 Morbid (severe) obesity due to excess calories; B96.1 Klebsiella pneumoniae [K. pneumoniae] as the cause of diseases classified elsewhere; E11.9 Type 2 diabetes mellitus without complications; G30.9 Alzheimer's disease, unspecified; Z82.3 Family history of stroke; Z80.8 Family history of malignant neoplasm of other organs or systems; Z83.3 Family history of diabetes mellitus; I48.91 Unspecified atrial fibrillation; K43.9 Ventral hernia without obstruction or gangrene; M47.815 Spondylosis without myelopathy or radiculopathy, thoracolumbar region; Z87.891 Personal history of nicotine dependence; Z90.5 Acquired absence of kidney; Z91.19 Patient's noncompliance with other medical treatment and regimen
CPT/HCPCS: 36415; 50435; 74176; 76770; 80048; 80053; 81001; 82948; 85025; 85027; 85610; 85730; 87040; 87077; 87088; 87186; 93005; C1729; C1769; C1894; C9113; G0378; J0696; J1644; J1815; J2250; J2270; J2405; J2543; J3010; J3490; J7030; Q9967

== ENCOUNTER 2020-01-11 13:39 | Inpatient (IN) | payer SELFPAY ==
[2020-01-11] VITALS (17 sets, daily range): BP systolic 118–148; BP diastolic 67–87
[~2020-01-11] VITALS: Ht 165.1 cm; Wt 113.4 kg
[~2020-01-11 13:39] MED LIST changes: +CEPH500C2 PO
[2020-01-11 14:20] LABS: BASOPHILS % (AUTO) 0.6 % (0.0-5.0); EOSINOPHILS % (AUTO) 0.8 % (0.0-8.0); HEMATOCRIT 51.8 % (42-54); LYMPHOCYTES % (AUTO) 17.1 % (21.0-51.0); MEAN CORPUSCULAR HEMOGLOBIN 28.9 pg (27.0-33.0); MEAN CORPUSCULAR HGB CONC 34.2 g/dL (32.0-36.0); MEAN CORPUSCULAR VOLUME 84.5 fL (79-99); MONOCYTES % (AUTO) 6.2 % (3.0-13.0); NEUTROPHILS % (AUTO) 74.9 % (40.0-77.0); PLATELET COUNT (AUTO) 241 K/uL (130-400); RED BLOOD CELL COUNT(AUTO) 6.13 MIL/uL (4.50-6.20); RED CELL DISTRIBUTION WIDTH 13.6 % (11.0-15.5); WHITE BLOOD COUNT (AUTO) 11.5 K/uL (4.8-10.8)
[2020-01-11 14:28] LABS: CREATININE 1.6 mg/dL (0.5-1.5)
[2020-01-11 14:33] LABS: ALBUMIN 3.9 g/dL (3.5-5.0); BILIRUBIN,TOTAL 0.5 mg/dL (0.2-1.0); TOTAL PROTEIN, SERUM 8.2 g/dL (6.0-8.3)
[2020-01-11] MEDS ORDERED: LIDOCAINE HCL 2% JELLY 5 ML ONE (15:19)
[2020-01-11] MEDS ORDERED: ONDANSETRON HCL 4 MG/2 ML VIAL ONE ×2 (15:36→20:33)
[2020-01-11] MEDS ORDERED: MORPHINE SULFATE 4 MG/1ML SYG ONE (15:36)
[2020-01-11] MEDS ORDERED: HYDROMORPHONE 1 MG/1 ML AMP ONE (17:03)
[2020-01-11] MEDS ORDERED: ONDANSETRON HCL 4 MG/2 ML VIAL IV PRN (18:45)
[2020-01-11] MEDS: CEFTRIAXONE SODIUM 1 GM IV SCH (18:45)
[2020-01-11] MEDS ORDERED: ACETAMINOPHEN 325 MG TAB PO PRN (18:45)
[2020-01-11] MEDS ORDERED: HYDRALAZINE HCL 20 MG/ML VIAL IV PRN (18:45)
[2020-01-11] MEDS ORDERED: LACTULOSE 20 GM/30 ML UDCUP PO PRN (18:45)
[2020-01-11] MEDS ORDERED: CEFTRIAXONE SODIUM 1 GM ONE (19:42)
[2020-01-11] MEDS ORDERED: IOHEXOL-350 50ML VIAL IV ONE ×2 (20:15→20:34)
[2020-01-11] MEDS ORDERED: SUCCINYLCHOLINE CHLORIDE 20 MG/ML 10 ML VIAL ONE (20:30)
[2020-01-11] MEDS ORDERED: LIDOCAINE PF 2% 5ML ABBOJECT ONE (20:30)
[2020-01-11] MEDS ORDERED: MIDAZOLAM HCL 1 MG/ML 2ML VIAL ONE (20:30)
[2020-01-11] MEDS ORDERED: PROPOFOL 10 MG/ML 20ML VIAL IV ONE (20:30)
[2020-01-11] MEDS ORDERED: FENTANYL CITRATE PF 50 MCG/1 ML 2ML VIAL ONE ×2 (20:31→20:51)
[2020-01-11] MEDS ORDERED: DEXAMETHASONE SOD PHOSPHATE 10MG/ML 1ML VIAL ONE (20:33)
[2020-01-11] MEDS ORDERED: EPHEDRINE SULFATE 50 MG/ML AMPULE ONE (20:42)
[2020-01-11] MEDS ORDERED: MEPERIDINE-PF 25 MG/ML SYG ONE (20:50)
[2020-01-11] MEDS ORDERED: BUPIVACAINE/PF 0.25% 30ML VIAL IJ ONE (21:05)
[2020-01-11] MEDS: SODIUM CHLORIDE 0.9% 1000ML 1,000 ML IV SCH ×2 (21:54→23:44)
[2020-01-11] MEDS ORDERED: METF-444 PO (23:12)
[2020-01-11] MEDS: INSULIN HUMULIN R 100 UNIT/ML 3ML SQ SCH (23:43)
[2020-01-12] VITALS (10 sets, daily range): BP systolic 108–142; BP diastolic 52–83
[2020-01-12] MEDS ORDERED: PHARMACY COMMUNICATION MISC SCH
[2020-01-12] MEDS: ACETAMINOPHEN 325 MG TAB PO PRN (04:27)
[2020-01-12 04:34] LABS: BASOPHILS % (AUTO) 0.1 % (0.0-5.0); HEMATOCRIT 48.2 % (42-54); LYMPHOCYTES % (AUTO) 4.4 % (21.0-51.0); MEAN CORPUSCULAR HEMOGLOBIN 28.2 pg (27.0-33.0); MEAN CORPUSCULAR VOLUME 85.6 fL (79-99); MONOCYTES % (AUTO) 1.1 % (3.0-13.0); NEUTROPHILS % (AUTO) 93.8 % (40.0-77.0); PLATELET COUNT (AUTO) 219 K/uL (130-400); RED BLOOD CELL COUNT(AUTO) 5.63 MIL/uL (4.50-6.20); RED CELL DISTRIBUTION WIDTH 13.6 % (11.0-15.5); WHITE BLOOD COUNT (AUTO) 14.5 K/uL (4.8-10.8)
[2020-01-12 04:45] LABS: CREATININE 1.4 mg/dL (0.5-1.5); POTASSIUM 4.5 mmol/L (3.5-5.1)
[2020-01-12] MEDS: INSULIN HUMULIN R 100 UNIT/ML 3ML SQ SCH ×4 (05:32→21:07)
--- NOTE | 2020-01-12 06:13 | NUR ---
changed dressing on the penis with xeroform, kerlex, and tape.
[2020-01-12] MEDS: METFORMIN HCL 500 MG TABLET PO SCH (09:39)
[2020-01-12] MEDS: FAMOTIDINE 20MG TAB 20 MG TAB PO SCH (09:39)
[2020-01-12] MEDS: SODIUM CHLORIDE 0.9% 1000ML 1,000 ML IV SCH ×2 (09:40→14:32)
[2020-01-12] MEDS: NEOMY SULF/BACITRAC ZN/POLY OINT 30GM TUBE TP SCH ×2 (09:42→21:07)
[2020-01-12] MEDS: KETOROLAC TROMETHAMINE 15MG/ML IV PRN (17:07)
[2020-01-12] MEDS: CEFTRIAXONE SODIUM 1 GM IV SCH (17:47)
[2020-01-12] MEDS: INSULIN GLARGINE 100 UNITS/ML 10 ML VIAL SQ SCH (21:07)
[2020-01-13] VITALS (7 sets, daily range): BP systolic 111–140; BP diastolic 48–70
[2020-01-13] MEDS: MORPHINE SULFATE 4 MG/1ML SYG IV PRN (01:29)
[2020-01-13 05:19] LABS: BASOPHILS % (AUTO) 0.3 % (0.0-5.0); EOSINOPHILS % (AUTO) 0.7 % (0.0-8.0); HEMATOCRIT 45.5 % (42-54); LYMPHOCYTES % (AUTO) 21.5 % (21.0-51.0); MEAN CORPUSCULAR HEMOGLOBIN 28.2 pg (27.0-33.0); MEAN CORPUSCULAR HGB CONC 32.3 g/dL (32.0-36.0); MEAN CORPUSCULAR VOLUME 87.2 fL (79-99); MONOCYTES % (AUTO) 8.2 % (3.0-13.0); NEUTROPHILS % (AUTO) 68.9 % (40.0-77.0); PLATELET COUNT (AUTO) 210 K/uL (130-400); RED BLOOD CELL COUNT(AUTO) 5.22 MIL/uL (4.50-6.20); RED CELL DISTRIBUTION WIDTH 13.8 % (11.0-15.5)
[2020-01-13 05:31] LABS: ALBUMIN 2.8 g/dL (3.5-5.0); BILIRUBIN,TOTAL 0.3 mg/dL (0.2-1.0); CREATININE 1.3 mg/dL (0.5-1.5); POTASSIUM 3.8 mmol/L (3.5-5.1); TOTAL PROTEIN, SERUM 6.4 g/dL (6.0-8.3)
[2020-01-13] MEDS: KETOROLAC TROMETHAMINE 15MG/ML IV PRN ×3 (06:04→20:46)
[2020-01-13] MEDS: INSULIN HUMULIN R 100 UNIT/ML 3ML SQ SCH ×4 (06:06→20:37)
[2020-01-13] MEDS: NEOMY SULF/BACITRAC ZN/POLY OINT 30GM TUBE TP SCH (09:00)
[2020-01-13] MEDS: SODIUM CHLORIDE 0.9% 1000ML 1,000 ML IV SCH ×2 (10:32→20:46)
[2020-01-13] MEDS: METFORMIN HCL 500 MG TABLET PO SCH (10:39)
[2020-01-13] MEDS: FAMOTIDINE 20MG TAB 20 MG TAB PO SCH (10:39)
--- NOTE | 2020-01-13 11:30 | NUR ---
HOSPITALIST DR. Helen MALIK ROUNDING AT THIS TIME. INFORMED MD THAT PATIENT STATES HE HAS NO ONE TO HELP AT HOME WITH SURGICAL INCISION DRESSING CHANGES AND THAT PATIENT REPORTS THAT HE IS NOT ABLE TO PERFORM HIS OWN DRESSING CHANGES DUE TO LOCATION OF SURGICAL INCISION ON HIS PENIS. INFORMED DR. Helen MALIK OF DR. COLLIER'S PLAN PER HIS PROGRESS NOTE.
--- NOTE | 2020-01-13 18:00 | NUR ---
DRESSING CHANGED PERFORMED DRESSING CHANGE TO SURGICAL INCISION LOCATED ON DORSUM ASPECT OF PENIS. SURGICAL INCISION IS OPEN AND NOT APPROXIMATED. APPLIED NEOSPORIN AND XEROFORM OVER SURGICAL INCISION, SECURED WITH KERLIX AND MEDIPORE TAPE. PATIENT TOLERATED PROCEDURE WELL.
[2020-01-13] MEDS: CEFTRIAXONE SODIUM 1 GM IV SCH (18:04)
[2020-01-13] MEDS: BENZOCAINE/MENTH/CETYLPYRD CL 1 EACH LOZENGE MM PRN (18:06)
[2020-01-13] MEDS: INSULIN GLARGINE 100 UNITS/ML 10 ML VIAL SQ SCH (20:43)
[2020-01-14 03:31] VITALS: BP 126/84
[2020-01-14] MEDS: KETOROLAC TROMETHAMINE 15MG/ML IV PRN ×3 (04:54→20:09)
[2020-01-14] MEDS: NEOMY SULF/BACITRAC ZN/POLY OINT 30GM TUBE TP SCH ×2 (04:56→20:15)
[2020-01-14 05:06] LABS: BASOPHILS % (AUTO) 0.5 % (0.0-5.0); HEMATOCRIT 43.9 % (42-54); LYMPHOCYTES % (AUTO) 28.6 % (21.0-51.0); MEAN CORPUSCULAR HEMOGLOBIN 28.9 pg (27.0-33.0); MEAN CORPUSCULAR HGB CONC 32.8 g/dL (32.0-36.0); MONOCYTES % (AUTO) 9.1 % (3.0-13.0); NEUTROPHILS % (AUTO) 58.4 % (40.0-77.0); PLATELET COUNT (AUTO) 217 K/uL (130-400); RED BLOOD CELL COUNT(AUTO) 4.99 MIL/uL (4.50-6.20); RED CELL DISTRIBUTION WIDTH 13.6 % (11.0-15.5); WHITE BLOOD COUNT (AUTO) 11.3 K/uL (4.8-10.8)
[2020-01-14] MEDS: SODIUM CHLORIDE 0.9% 1000ML 1,000 ML IV SCH ×2 (05:14→20:11)
[2020-01-14 05:25] LABS: ALBUMIN 2.8 g/dL (3.5-5.0); BILIRUBIN,TOTAL 0.2 mg/dL (0.2-1.0); CREATININE 1.3 mg/dL (0.5-1.5); TOTAL PROTEIN, SERUM 6.4 g/dL (6.0-8.3)
[2020-01-14] MEDS: INSULIN HUMULIN R 100 UNIT/ML 3ML SQ SCH ×4 (05:54→20:15)
[2020-01-14 07:23] VITALS: BP 132/88
[2020-01-14] MEDS: METFORMIN HCL 500 MG TABLET PO SCH (08:22)
[2020-01-14] MEDS: FAMOTIDINE 20MG TAB 20 MG TAB PO SCH (08:22)
[2020-01-14] MEDS: BENZOCAINE/MENTH/CETYLPYRD CL 1 EACH LOZENGE MM PRN (08:25)
[2020-01-14 10:55] VITALS: BP 163/87
--- NOTE | 2020-01-14 15:02 | NUR ---
D/C PLAN CM spoke to pt regarding d/c planning. Pt is ind. with ADL's. States he stays with friends or family and does not have permanent residence. States he was staying with a friend prior to hospital admission. Denies having any DME. States he will be calling a friend to assist with transportation home. Reports he does have somewhere to stay when discharged. CM offered to make a referral to [facility] or other senior living. Declined and states he will have somewhere to stay. CM provided community resources packet. Plan to home. CM updated nursing. CM to f/u. Addendum: 01/14/20 at 1504 by GABBI DAWSON CM Amended: Links added.
[2020-01-14 15:53] VITALS: BP 149/84
[2020-01-14] MEDS: INSULIN GLARGINE 100 UNITS/ML 10 ML VIAL SQ SCH (20:15)
[2020-01-14 20:23] VITALS: BP 149/78
[2020-01-14 23:57] VITALS: BP 140/83
[2020-01-15] MEDS: MORPHINE SULFATE 4 MG/1ML SYG IV PRN (00:20)
[2020-01-15] MEDS: SODIUM CHLORIDE 0.9% 1000ML 1,000 ML IV SCH ×3 (02:32→22:32)
[2020-01-15 03:56] VITALS: BP 142/80
[2020-01-15 05:40] LABS: BASOPHILS % (AUTO) 0.6 % (0.0-5.0); EOSINOPHILS % (AUTO) 3.6 % (0.0-8.0); HEMATOCRIT 43.7 % (42-54); LYMPHOCYTES % (AUTO) 27.7 % (21.0-51.0); MEAN CORPUSCULAR HEMOGLOBIN 28.5 pg (27.0-33.0); MEAN CORPUSCULAR VOLUME 86.4 fL (79-99); NEUTROPHILS % (AUTO) 59.7 % (40.0-77.0); PLATELET COUNT (AUTO) 217 K/uL (130-400); RED BLOOD CELL COUNT(AUTO) 5.06 MIL/uL (4.50-6.20); RED CELL DISTRIBUTION WIDTH 13.3 % (11.0-15.5); WHITE BLOOD COUNT (AUTO) 10.4 K/uL (4.8-10.8)
[2020-01-15 05:54] LABS: ALBUMIN 2.7 g/dL (3.5-5.0); BILIRUBIN,TOTAL 0.4 mg/dL (0.2-1.0); CREATININE 1.2 mg/dL (0.5-1.5); POTASSIUM 3.9 mmol/L (3.5-5.1); TOTAL PROTEIN, SERUM 6.4 g/dL (6.0-8.3)
[2020-01-15] MEDS: INSULIN HUMULIN R 100 UNIT/ML 3ML SQ SCH ×4 (06:04→20:44)
[2020-01-15] MEDS ORDERED: LISINOPRIL 5 MG TABLET PO SCH (09:00)
[2020-01-15 09:12] VITALS: BP 150/80
[2020-01-15] MEDS: METFORMIN HCL 500 MG TABLET PO SCH (09:35)
[2020-01-15] MEDS: FAMOTIDINE 20MG TAB 20 MG TAB PO SCH (09:35)
[2020-01-15] MEDS: KETOROLAC TROMETHAMINE 15MG/ML IV PRN (09:39)
[2020-01-15] MEDS: NEOMY SULF/BACITRAC ZN/POLY OINT 30GM TUBE TP SCH ×2 (13:00→20:53)
[2020-01-15 13:20] VITALS: BP 169/86
--- NOTE | 2020-01-15 13:35 | NUR ---
ATTEMPTED TO CALL DR COLLIER OFFICE 2 X IN REGARDS TO ORDER TO D/C ORDER TO SEE IF GAONA CATHETOR CAN BE REMOVED; I WILL CALL AGAIN LATER;
--- NOTE | 2020-01-15 13:36 | NUR ---
DRESSING CHANGED TO PT'S PENIS; HE HAS A SMALL AMOUNT OF WHITE THICK EXUDATE AROUND GAONA CATHETOR; I HAVE CLEANSED THIS OFF WITH NORMAL SALINE AND APPLIED ANTIBIOTIC OINTMENT TO FORESKIN AND TUBE INSERTION SITE, THE SKIN INSIDE AREA OF INCISED FORESKIN IS PINK IN COLOR; PT KE. PROC. WELL.
--- NOTE | 2020-01-15 15:00 | NUR ---
CHARGE NURSE SHERRELL HAS SPOKEN TO STAFF AT DR COLLIER'S OFFICE AND IS AWAITING DR COLLIER TO RETURN CALL IN REGARDS TO WHETHER OR NOT IT IS RECOMENDED FOR GAONA TO BE REMOVED NOW AND SEND PT HOME; HIS LAST RECOMENDATIONS WERE TO LEAVE IN PLACE 7 DAYS THEN HAVE REMOVED AT PCP OFFICE, PT IS CURRENTLY ON DAY 4; I HAVE SPOKEN TO PATIENT IN REGARDS TO THE HOSPITALIST GROUP WHANTING HIM TO BE D/C AND F/U W/ DR COLLIER AND HE STATES HE DOES NOT WANT TO LEAVE THE HOSPITAL WITH GAONA IN PLACE THEY ARE ASKING HIM TO DO BECAUSE HE HAS A POOR LIVING SITUATION W/ FREINDS ONLY AND DOES NOT HAVE THE FUNDS TO F/U WITH DR COLLIER AT THE OFFICE FOR FOLLOW UP AND CATHETOR REMOVAL; HE IS AFRAID OF NOT BEING ABLE TO PROPERLY TAKE CARE OF INCISION AND GAONA AT HIS CURRENT LIVING SITUATION; HE STATES HE WILL LEAVE TODAY IF DR COLLIER SAYS ITS OK TO REMOVE THE GAONA EARLY OTHER GLOVER HER PREFERS TO STAY TILL THE RECOMMENDED LENGTH OF GAONA INSERTION TIME AND GO HOME W/ NO TUBE IN PLACE. I HAVE EXPRESSED HIS WISHES TO THE CHARGE NURSE OLEG AND HOSPITALIST YOSHI BOLDEN; THEY STATE TO KEEP ON TRYING TO REACH DR COLLIER AND GET HIS RECOMENDATIONS. THUS I HAVE NOT DISCHARGED PT YET.
[2020-01-15 17:40] VITALS: BP 134/71
[2020-01-15 20:00] VITALS: BP 147/72
[2020-01-15] MEDS: INSULIN GLARGINE 100 UNITS/ML 10 ML VIAL SQ SCH (20:46)
[2020-01-15] MEDS: ACETAMINOPHEN 325 MG TAB PO PRN (20:48)
--- NOTE | 2020-01-15 21:45 | NUR ---
patient refusing iv fluids
[2020-01-15 23:35] VITALS: BP 134/68
[2020-01-16 03:27] VITALS: BP 135/81
[2020-01-16] MEDS: INSULIN HUMULIN R 100 UNIT/ML 3ML SQ SCH (05:34)
[2020-01-16] MEDS: MORPHINE SULFATE 4 MG/1ML SYG IV PRN (05:57)
[2020-01-16 07:56] VITALS: BP 143/87
--- NOTE | 2020-01-16 10:15 | NUR ---
DISCHARGE PATIENT GIVEN DISCHARGE INSTRUCTIONS VIA TEACH BACK. 20G PIV TO RIGHT WRIST DISCONTINUED, TIP INTACT. PATIENT VOIDING WITHOUT ANY DISCOMFORT AT THIS TIME. PATIENT VOICED IS AWARE OF DAILY INCISION CARE TO PENIS WITH NEOSPORIN. PATIENT TO FOLLOW UP WITH DR. COLLIER IN 2 WEEKS. PATIENT STABLE AT THIS TIME. PATIENT WHEELED TO [facility] FOR DISCHARGE BY CODY SHANE.
== END 2020-01-16 10:30 | disposition home or self-care (01) | DRG 683 ==
LOC: EDH 13:39 → EDHIP 13:40 → 3CH 21:59
PROVIDERS: ADMIT Internal Medicine; ATTEND Internal Medicine
PROC: BT1B1ZZ Fluoroscopy of Bladder and Urethra using Low Osmolar Contrast (ICD-10-PCS; principal; 2020-01-11 20:30)
PROC: 0T9B8ZZ Drainage of Bladder, Via Natural or Artificial Opening Endoscopic (ICD-10-PCS; 2020-01-11 20:30)
DX: N17.9 Acute kidney failure, unspecified (principal); E87.1 Hypo-osmolality and hyponatremia; N47.1 Phimosis; R33.8 Other retention of urine; E11.9 Type 2 diabetes mellitus without complications; I48.91 Unspecified atrial fibrillation; K42.9 Umbilical hernia without obstruction or gangrene; K57.30 Diverticulosis of large intestine without perforation or abscess without bleeding; K59.00 Constipation, unspecified; N20.0 Calculus of kidney; Z87.442 Personal history of urinary calculi; Z91.19 Patient's noncompliance with other medical treatment and regimen; Z83.3 Family history of diabetes mellitus; Z82.3 Family history of stroke; Z82.0 Family history of epilepsy and other diseases of the nervous system; Z80.9 Family history of malignant neoplasm, unspecified
CPT/HCPCS: 36415; 74176; 74430; 80048; 80053; 82948; 85025; A4351; A4354; C1758; C1769; G0378; J0330; J0696; J1100; J1170; J1815; J1885; J2001; J2175; J2250; J2270; J2405; J2704; J3010; J3490; J7030; Q9958; Q9967